=== PATIENT | male | born 1935 | race Caucasian/White ===

== ENCOUNTER 2019-02-20 15:45 | Emergency (ER) | payer BC, MEDICARE ==
[2019-02-20] MEDS ORDERED: Lidocaine 1% 10 ML MDV INJECT ONE (16:15)
--- NOTE | 2019-02-20 16:41 | EDM.PDOC ---
ED HPI GENERAL MEDICAL PROBLEM - General Chief Complaint: Head Injury Stated Complaint: [facility] Time Seen by Provider: 02/20/19 16:01 Source of Information: Reports: Patient, EMS, RN Notes Reviewed - History of Present Illness INITIAL COMMENTS - FREE TEXT/NARRATIVE: 83-year-old male is reported to have lost balance and fell a short time ago at the [facility]. Fell backwards, suffered a stellate type laceration posterior scalp. There is no reported LOC. Denies headache. Her back pain. No other pain or injury from the fall. There's been no nausea or vomiting. Right Posterior Head Pain Score (Numeric/FACES): 4 - Related Data Allergies Allergy/AdvReac Type Severity Reaction Status Date / Time No Known Allergies Allergy Verified 02/20/19 15:55 Home Meds: Home Meds Docusate Sodium [Colace] 100 mg PO ASDIRECTED PRN 02/20/19 [History] Losartan [Cozaar] 50 mg PO DAILY 02/20/19 [History] Metoprolol Tartrate 12.5 mg PO DAILY 02/20/19 [History] Metoprolol Tartrate 25 mg PO BEDTIME 02/20/19 [History] Montelukast [Singulair] 10 mg PO DAILY 02/20/19 [History] QUEtiapine [SEROquel] 25 mg PO ASDIRECTED PRN 02/20/19 [History] Past Medical History Cardiovascular History: Reports: Hypertension Respiratory History: Reports: COPD Neurological History: Reports: Alzheimers Disease Social & Family History - Tobacco Use Smoking Status *Q: Former Smoker Used Tobacco, but Quit: Yes Month/Year Tobacco Last Used: 20 - Caffeine Use Caffeine Use: Reports: Coffee, Tea - Recreational Drug Use Recreational Drug Use: No ED ROS GENERAL - Review of Systems Review Of Systems: See Below Constitutional: Reports: No Symptoms HEENT: Denies: Ear Discharge Respiratory: Denies: Shortness of Breath Cardiovascular: Denies: Chest Pain GI/Abdominal: Denies: Abdominal Pain, Nausea, Vomiting Musculoskeletal: Denies: Neck Pain, Shoulder Pain, Arm Pain, Back Pain, Leg Pain Neurological: Denies: Headache, Weakness (No focal weakness) ED EXAM, HEAD INJURY - Physical Exam Exam: See Below General Appearance: Alert, No Apparent Distress Head: Other (3 cm stellate laceration posterior occipital scalp, edges are jagged, very mild localized swelling, mild bleeding) Eyes: Bilateral Eye: PERRL Ears: Normal External Exam Nose: Normal Inspection Neck: Non-Tender Respiratory: No Respiratory Distress, Lungs Clear, Normal Breath Sounds Cardiovascular: Regular Rate, Rhythm Back Exam: Normal Inspection. No: Vertebral Tenderness Extremities: Normal Inspection, Normal Range of Motion, Other (Good range of motion upper and lower extremities, shoulders, upper extremities hips lower extremities nontender) Neurologic: No Motor/Sensory Deficits Skin: Warm/Dry ED LACERATION/WOUND & NEVILLE PROC - Laceration/Wound Repair Occipital Head Lac/wound length in cm: 3 Appearance: Stellate, Irregular Distal NVT: Neuro & Vascular Intact Local Anesthesia - Lidocaine (Xylocaine): 1% Plain Skin Prep: Saline Suture Size: 3-0 # of Sutures: 5 Suture Type: Nylon Course - Vital Signs Last Recorded V/S: Last Vital Signs Temp 99.1 F 02/20/19 15:49 Pulse 74 02/20/19 15:49 Resp 20 02/20/19 15:49 BP 139/78 02/20/19 15:49 Pulse Ox 98 02/20/19 15:49 - Orders/Labs/Meds Meds: Medications Discontinued Medications Generic Name Dose Route Start Last Admin Trade Name Opal PRN Reason Stop Dose Admin Lidocaine HCl 10 ml 02/20/19 16:15 02/20/19 16:21 Xylocaine 1% INJECT 02/20/19 16:16 10 ml ONETIME ONE Administration Departure - Departure Time of Disposition: 16:39 Disposition: Home, Self-Care 01 Condition: Fair Clinical Impression: Fall, Occipital scalp laceration - Discharge Information Referrals: Jori Ivy MD [Primary Care Provider] - Forms: ED Department Discharge Additional Instructions: Plan to keep pressure dressing on until Monday, then small amount of antibiotic ointment over the laceration area twice daily for the next 5 days. Stitches out in about 12 days. Follow-up clinic as needed, return to ED as needed. Sepsis Event Note - Evaluation Sepsis Screening Result: No Definite Risk - Focused Exam Vital Signs: Vital Signs Temp Pulse Resp BP Pulse Ox 02/20/19 15:49 99.1 F 74 20 139/78 98 Date Exam was Performed: 02/20/19 Time Exam was Performed: 16:41
== END 2019-02-20 17:04 | disposition home or self-care (01) ==
LOC: JD.ED 15:45
DX: S01.01XA Laceration without foreign body of scalp, initial encounter (principal); I10 Essential (primary) hypertension; J44.9 Chronic obstructive pulmonary disease, unspecified; G30.9 Alzheimer's disease, unspecified; F02.80 Dementia in other diseases classified elsewhere, unspecified severity, without behavioral disturbance, psychotic disturbance, mood disturbance, and anxiety; Z87.891 Personal history of nicotine dependence; Z79.899 Other long term (current) drug therapy; W19.XXXA Unspecified fall, initial encounter
CPT/HCPCS: 12002; 99283; J2001

== ENCOUNTER 2020-04-11 01:07 | Emergency (ER) | payer MEDICAID, MEDICARE ==
--- NOTE | 2020-04-11 01:21 | EDM.PDOC ---
ED HPI GENERAL MEDICAL PROBLEM - General Chief Complaint: Head Injury Stated Complaint: lac to head Time Seen by Provider: 04/11/20 01:21 - History of Present Illness INITIAL COMMENTS - FREE TEXT/NARRATIVE: 84-year-old male brought into the emergency room following a head injury. Patient resides in a long-term facility where he had an unwitnessed fall. Is unclear if he had any loss of consciousness. Patient has advanced Alzheimer's. However, the patient can answer questions. He denies pain anywhere. Patient has no other complaints reported or verbalized at this time. Head Pain Score (Numeric/FACES): 10 - Related Data Allergies Allergy/AdvReac Type Severity Reaction Status Date / Time No Known Allergies Allergy Verified 04/11/20 01:27 Home Meds: Home Meds Metoprolol Tartrate 25 mg PO BID 02/20/19 [History] Montelukast [Singulair] 10 mg PO DAILY 02/20/19 [History] Acetaminophen [Tylenol] 650 mg PO Q4H PRN 04/11/20 [History] Cholecalciferol (Vitamin D3) [Vitamin D3] 25 mcg PO DAILY 04/11/20 [History] Ipratropium/Albuterol Sulfate [Iprat-Albut 0.5-3(2.5) mg/3 ml] 1 ampule INH BID 04/11/20 [History] Latanoprost/Pf [Latanoprost 0.005% Eye Drop] 1 drop EYEBOTH BEDTIME 04/11/20 [History] Ondansetron [Zofran ODT] 4 mg PO Q6H PRN 04/11/20 [History] Past Medical History Cardiovascular History: Reports: Hypertension Respiratory History: Reports: COPD Neurological History: Reports: Alzheimers Disease Social & Family History - Caffeine Use Caffeine Use: Reports: Coffee, Tea ED ROS GENERAL - Review of Systems Review Of Systems: See Below Constitutional: Reports: No Symptoms HEENT: Reports: No Symptoms Respiratory: Reports: No Symptoms. Denies: Shortness of Breath Cardiovascular: Reports: No Symptoms. Denies: Chest Pain GI/Abdominal: Reports: No Symptoms. Denies: Abdominal Pain, Nausea, Vomiting Musculoskeletal: Denies: Neck Pain, Back Pain, Leg Pain Skin: Reports: No Symptoms Neurological: Denies: Headache, Trouble Speaking, Weakness Psychiatric: Reports: Confusion. Denies: Agitation, Anxiety Hematologic/Lymphatic: Reports: No Symptoms Immunologic: Reports: No Symptoms ED EXAM, HEAD INJURY - Physical Exam Exam: See Below Exam Limited By: No Limitations General Appearance: Alert, No Apparent Distress, Other (Patient had a careful exam looking for painful areas the patient denied any pain with pretty extensive palpation) Eyes: Bilateral Eye: EOMI, Normal Inspection, PERRL Ears: Normal External Exam, Normal Canal, Hearing Grossly Normal, Normal TMs, Other (Some cerumen in the external canals not obstructing) Throat/Mouth: Normal Inspection, Normal Lips, Normal Gums, Normal Oropharynx, No rmal Voice, No Airway Compromise, Other (Missing multiple teeth and has some teeth in need of repair no acute changes noted at this time however). No: Normal Teeth Neck: Non-Tender. No: Painful Range of Motion, Spinous Processes Tender, Stiff Neck Respiratory: No Respiratory Distress, Lungs Clear, Normal Breath Sounds, Chest Non-Tender Cardiovascular: Regular Rate, Rhythm, No Edema, No Murmur GI/Abdominal Exam: Normal Bowel Sounds, Soft, Non-Tender Back Exam: Normal Inspection, Paraspinal Tenderness. No: CVA Tenderness (L), Vertebral Tenderness Extremities: Normal Inspection, No Pedal Edema ED LACERATION/WOUND & NEVILLE PROC - Laceration/Wound Repair Right Posterior Head Lac/wound length in cm: 2 Appearance: Subcutaneous, Other (Curvilinear) Anesthetic Type: Local Local Anesthesia - Lidocaine (Xylocaine): 1% Plain Local Anesthetic Volume: 3cc Skin Prep: Saline Exploration/Debridement/Repair: Wound Explored, In a Bloodless Field, Explored to Base Closed with: [place] # of Sutures: 4 Tetanus Status Addressed: Yes (This is updated) Complications: No Course - Vital Signs Last Recorded V/S: Last Vital Signs Temp 36.2 C 04/11/20 01:19 Pulse 80 04/11/20 01:19 Resp 16 04/11/20 01:19 BP 132/81 04/11/20 01:19 Pulse Ox 98 04/11/20 01:19 - Orders/Labs/Meds Orders: Active Orders 24 hr Category Date Time Status Head wo Cont [CT] Stat Exams 04/11/20 01:29 Taken Meds: Medications Discontinued Medications Generic Name Dose Route Start Last Admin Trade Name Freq PRN Reason Stop Dose Admin Lidocaine HCl 10 ml 04/11/20 01:31 04/11/20 02:21 Xylocaine 1% INJECT 04/11/20 01:32 10 ml ONETIME ONE Administration - Re-Assessments/Exams Free Text/Narrative Re-Assessment/Exam: 04/11/20 02:39 With the uncertainty of the situation and head CT was obtained which showed some age-related changes generalized atrophy but no acute intracranial abnormality. Patient tolerated primary repair of the laceration on posterior scalp without difficulty. His tetanus was unknown so this was updated. Departure - Departure Time of Disposition: 02:41 Disposition: DC/Tfer to [facility] Clinical Impression: Head injury, Scalp laceration - Discharge Information Referrals: Andrei Hussein MD [Primary Care Provider] - Forms: ED Department Discharge Additional Instructions: Return to the emergency room with any questions problems or worsening symptoms. Follow-up with your regular healthcare provider in 10 days for staple removal. Keep the area absolutely clean and dry for the next 48 hours. After 48 hours you can let water gently roll over the area, no scrubbing, then gently dab dry. Sepsis Event Note (ED) - Focused Exam Vital Signs: Vital Signs Temp Pulse Resp BP Pulse Ox 04/11/20 01:19 36.2 C 80 16 132/81 98 - My Orders Last 24 Hours: My Active Orders 04/11/20 01:29 Head wo Cont [CT] Stat - Assessment/Plan Last 24 Hours: My Active Orders 04/11/20 01:29 Head wo Cont [CT] Stat
[2020-04-11] MEDS ORDERED: Lidocaine 1% 10 ML MDV INJECT ONE (01:31)
[2020-04-11] MEDS ORDERED: Diphtheria,Pertussis(Acell),Tetanus Vaccine 0.5 ML Syringe IM ONE (02:39)
--- NOTE | 2020-04-11 10:39 | CT ---
Head CT Technique: Multiple axial sections through the brain were obtained. Intravenous contrast was not utilized. Reconstructed coronal and sagittal images were obtained. Comparison: No prior intracranial imaging is available. Findings: Ventricles along with basal cisterns and sulci over the convexities are moderately prominent. Mild areas of diminished density are noted within the periventricular white matter compatible with mild small vessel ischemic demyelination change. Atherosclerotic calcification is seen within the carotid siphon and within the vertebral vessels. No acute hemorrhage is seen. No mass-effect is seen. Bone window settings were reviewed which show no acute calvarial abnormality. Slight mucosal thickening is noted within the ethmoid sinuses. Mastoid sinuses show nothing acute. Impression: 1. Senescent change as noted above. 2. Chronic appearing mucosal thickening within the ethmoid sinuses. 3. No acute intracranial abnormality is appreciated. Diagnostic code #2 I agree with preliminary report from [facility], finalized on 04/11/20, 3:35 AM [employer]
== END 2020-04-11 03:05 ==
LOC: JD.ED 01:07
DX: S01.01XA Laceration without foreign body of scalp, initial encounter (principal); S09.90XA Unspecified injury of head, initial encounter; I10 Essential (primary) hypertension; J44.9 Chronic obstructive pulmonary disease, unspecified; G30.9 Alzheimer's disease, unspecified; F02.80 Dementia in other diseases classified elsewhere, unspecified severity, without behavioral disturbance, psychotic disturbance, mood disturbance, and anxiety; Z23 Encounter for immunization; H61.23 Impacted cerumen, bilateral; W19.XXXA Unspecified fall, initial encounter
CPT/HCPCS: 12001; 70450; 70450-26; 90471; 90715; 99283; 99284-25

== ENCOUNTER 2020-06-28 22:06 | Emergency (ER) | payer MEDICAID, MEDICARE ==
[2020-06-28] MEDS ORDERED: Ondansetron 4 MG/2 ML SDV IVPUSH ONE (22:34)
--- NOTE | 2020-06-29 00:43 | EDM.PDOC ---
ED HPI GENERAL MEDICAL PROBLEM - General Chief Complaint: Gastrointestinal Problem Stated Complaint: [facility] Time Seen by Provider: 06/28/20 22:21 Source of Information: Reports: EMS, Long Term Records History Limitations: Reports: Altered Mental Status, Other (Dementia) - History of Present Illness INITIAL COMMENTS - FREE TEXT/NARRATIVE: Patient was referred to ED from [facility] He apparently was found in bed by staff, with evidence that he had fallen on the floor before getting back into bed He had occurrence of epistaxis, which resolved Subsequently has had small amounts of vomitus with bloody material Patient has dementia, and is unable to provide additional history Staff at facility report him to be at baseline mental status, minimally verbal - Related Data Allergies Allergy/AdvReac Type Severity Reaction Status Date / Time No Known Allergies Allergy Verified 06/28/20 22:15 Home Meds: Home Meds Montelukast [Singulair] 10 mg PO DAILY 02/20/19 [History] Acetaminophen [Tylenol] 650 mg PO Q4H PRN 04/11/20 [History] Cholecalciferol (Vitamin D3) [Vitamin D3] 25 mcg PO DAILY 04/11/20 [History] Ipratropium/Albuterol Sulfate [Iprat-Albut 0.5-3(2.5) mg/3 ml] 1 ampule INH BID 04/11/20 [History] Latanoprost/Pf [Latanoprost 0.005% Eye Drop] 1 drop EYEBOTH BEDTIME 04/11/20 [History] Ondansetron [Zofran ODT] 4 mg PO Q6H PRN 04/11/20 [History] Docusate Sodium [Colace] 100 mg PO DAILY PRN 06/28/20 [History] Sennosides [Senna] 8.6 mg PO DAILY PRN 06/28/20 [History] Past Medical History HEENT History: Reports: Other (See Below) Other HEENT History: dysphagia Cardiovascular History: Reports: Hypertension Respiratory History: Reports: Asthma, COPD, Pneumonia, Recurrent Gastrointestinal History: Reports: Chronic Constipation Genitourinary History: Reports: Renal Calculus Musculoskeletal History: Reports: Arthritis Neurological History: Reports: Alzheimers Disease, Speech Problems Psychiatric History: Reports: Alzheimers Disease Endocrine/Metabolic History: Reports: Other (See Below) Other Endocrine/Metabolic History: impaired fasting glucose Social & Family History - Family History Family Medical History: No Pertinent Family History - Tobacco Use Tobacco Use Status *Q: Unknown Ever Used Tobacco - Caffeine Use Caffeine Use: Reports: None ED ROS GENERAL - Review of Systems Review Of Systems: Unable To Obtain Reason Not Obtained: Limited by dementia ED EXAM, GENERAL - Physical Exam Exam: See Below Free Text/Narrative:: Constitutional - awake; alert; no acute distress; Head - no facial swelling or weakness; adhesive tapes with mild dried blood present lateral to right eye, no visible wound gap; mild periocular ecchymosis right eye Eyes - extra ocular motion intact; conjunctiva normal; pupils equal and reactive to light ENT - no nasal deformity; no epistaxis; no nasal septal hematoma; dark bloody vomitus present on blanket with mucoid saliva/oral secretions Neck - no swelling Respiratory - normal respiratory effort; no crackles or wheezing; no stridor Cardiovascular - regular rhythm; normal rate; S1; S2; grade 1/6 systolic murmur GI/Abdomen - normal bowel sounds; soft; no tenderness; no rebound; no guarding; no mass Musculoskeletal - no gross swelling or deformity; functional passive range of motion all extremities Skin - warm; dry Neurologic - speech limited, minimal; no gross weakness Psychiatric - flat mood and affect; attention fair; memory and insight deferred Course - Vital Signs Text/Narrative:: . Considered etiologies included: Fall, contusion, facial laceration, intracranial injury, intracranial hemorrhage, epistaxis, hematemesis, GI bleeding Patient was evaluated as described Treatment with ondansetron was provided for vomiting Investigations were initiated No visible laceration repair was indicated 2345 - CT results and consideration for transfer were discussed with patient's emergency contact, Amie Lora (stepdaughter) She indicated that surgical intervention would be desired if medically indicated, voiced preference for [facility] She expressed frustration that patient has had frequent falls since admission to his current care facility 01/2020 0020 - call initiated to [facility] for transfer [phone] - case discussed with Dr. Barone (neurosurgery at [facility]) who reviewed CT images, agreed to provide neurosurgery consultation [phone] - case discussed with Dr. Macias (hospitalist at [facility]) who accepted patient for transfer COVID-19 testing was performed at request of transfer agent Arrangements were made for transport by ambulance Patient's neurologic and hemodynamic condition were stable during ED course Last Recorded V/S: Last Vital Signs Temp 36.1 C 06/28/20 22:11 Pulse 87 06/28/20 22:11 Resp 17 06/28/20 22:11 BP 160/92 H 06/28/20 22:11 Pulse Ox 95 06/28/20 22:11 - Orders/Labs/Meds Orders: Active Orders 24 hr Category Date Time Status Head wo Cont [CT] Stat Exams 06/28/20 22:33 Taken Lactated Ringers @ 125 MLS/HR(1000ml Bag) Med 06/29/20 02:15 Ordered Lactated Ringers [Ringers, Lactated] 1,000 ml IV ASDIRECTED Medication Orders Lactated Ringer's (Ringers, Lactated) 1,000 mls @ 125 mls/hr IV ASDIRECTED SABI Last Admin: 06/29/20 02:15 Dose: 125 mls/hr Documented by: POOJA Labs: Laboratory Tests 06/28/20 06/28/20 06/28/20 Range/Units 22:40 22:40 22:40 WBC 11.29 H (4.23-9.07) K/mm3 RBC 4.55 L (4.63-6.08) M/mm3 Hgb 14.1 (13.7-17.5) gm/dl Hct 41.2 (40.1-51.0) % MCV 90.5 (79.0-92.2) fl MCH 31.0 (25.7-32.2) pg MCHC 34.2 (32.2-35.5) g/dl RDW Std Deviation 42.8 (35.1-43.9) fL Plt Count 136 L (163-337) K/mm3 MPV 10.3 (9.4-12.3) fl Neut % (Auto) 90.2 H (34.0-67.9) % Lymph % (Auto) 4.4 L (21.8-53.1) % Craig % (Auto) 4.3 L (5.3-12.2) % Eos % (Auto) 0.7 L (0.8-7.0) Baso % (Auto) 0.2 (0.1-1.2) % Neut # (Auto) 10.18 H (1.78-5.38) K/mm3 Lymph # (Auto) 0.50 L (1.32-3.57) K/mm3 Craig # (Auto) 0.49 (0.30-0.82) K/mm3 Eos # (Auto) 0.08 (0.04-0.54) K/mm3 Baso # (Auto) 0.02 (0.01-0.08) K/mm3 Manual Slide Review Abnormal smear PT 13.0 H (9.7-12.0) SECONDS INR 1.22 APTT 25.9 (21.7-31.4) SECONDS Sodium 140 (136-145) mEq/L Potassium 4.2 (3.5-5.1) mEq/L Chloride 103 (98-107) mEq/L Carbon Dioxide 26 (21-32) mEq/L Anion Gap 15.2 H (5-15) BUN 24 H (7-18) mg/dL Creatinine 1.1 (0.7-1.3) mg/dL Est Cr Clr Drug Dosing 37.48 mL/min Estimated GFR (MDRD) > 60 (>60) mL/min BUN/Creatinine Ratio 21.8 H (14-18) Glucose 213 H (83-115) mg/dL Calcium 8.7 (8.5-10.1) mg/dL Total Bilirubin 0.8 (0.2-1.0) mg/dL AST 21 (15-37) U/L ALT 31 (16-63) U/L Alkaline Phosphatase 90 (46-116) U/L Total Protein 6.7 (6.4-8.2) g/dl Albumin 3.7 (3.4-5.0) g/dl Globulin 3.0 gm/dL Albumin/Globulin Ratio 1.2 (1-2) SARS-CoV-2 RNA (MARLINE) (NEGATIVE) 06/29/20 Range/Units 01:27 WBC (4.23-9.07) K/mm3 RBC (4.63-6.08) M/mm3 Hgb (13.7-17.5) gm/dl Hct (40.1-51.0) % MCV (79.0-92.2) fl MCH (25.7-32.2) pg MCHC (32.2-35.5) g/dl RDW Std Deviation (35.1-43.9) fL Plt Count (163-337) K/mm3 MPV (9.4-12.3) fl Neut % (Auto) (34.0-67.9) % Lymph % (Auto) (21.8-53.1) % Craig % (Auto) (5.3-12.2) % Eos % (Auto) (0.8-7.0) Baso % (Auto) (0.1-1.2) % Neut # (Auto) (1.78-5.38) K/mm3 Lymph # (Auto) (1.32-3.57) K/mm3 Craig # (Auto) (0.30-0.82) K/mm3 Eos # (Auto) (0.04-0.54) K/mm3 Baso # (Auto) (0.01-0.08) K/mm3 Manual Slide Review PT (9.7-12.0) SECONDS INR APTT (21.7-31.4) SECONDS Sodium (136-145) mEq/L Potassium (3.5-5.1) mEq/L Chloride (98-107) mEq/L Carbon Dioxide (21-32) mEq/L Anion Gap (5-15) BUN (7-18) mg/dL Creatinine (0.7-1.3) mg/dL Est Cr Clr Drug Dosing mL/min Estimated GFR (MDRD) (>60) mL/min BUN/Creatinine Ratio (14-18) Glucose (83-115) mg/dL Calcium (8.5-10.1) mg/dL Total Bilirubin (0.2-1.0) mg/dL AST (15-37) U/L ALT (16-63) U/L Alkaline Phosphatase (46-116) U/L Total Protein (6.4-8.2) g/dl Albumin (3.4-5.0) g/dl Globulin gm/dL Albumin/Globulin Ratio (1-2) SARS-CoV-2 RNA (MARLINE) Negative (NEGATIVE) Meds: Medications Generic Name Dose Route Start Last Admin Trade Name Freq PRN Reason Stop Dose Admin Lactated Ringer's 1,000 mls @ 125 mls/hr 06/29/20 02:15 06/29/20 02:15 Ringers, Lactated IV 125 mls/hr ASDIRECTED SABI Administration Discontinued Medications Generic Name Dose Route Start Last Admin Trade Name Charbelq PRN Reason Stop Dose Admin Ondansetron HCl 4 mg 06/28/20 22:34 06/28/20 22:43 Ondansetron 4 Mg/2 Ml Sdv IVPUSH 06/28/20 22:35 4 mg ONETIME ONE Administration - Radiology Interpretation Free Text/Narrative:: CT head, noncontrast, preliminary radiology report: 1. Tiny 8 mm sub append mole (sic) hemorrhage involving the right lateral ventricle without significant mass-effect 2. No acute fracture or dislocation Departure - Departure Time of Disposition: 02:30 Disposition: DC/Tfer to [facility] Clinical Impression: Acute intracranial hemorrhage, Epistaxis due to trauma Fall with significant injury Qualifiers: Encounter type: initial encounter Qualified Code(s): W19.XXXA - Unspecified fall, initial encounter Laceration of face Qualifiers: Encounter type: initial encounter Qualified Code(s): S01.81XA - Laceration without foreign body of other part of head, initial encounter - Discharge Information Forms: [facility] Sepsis Event Note (ED) - Evaluation Sepsis Screening Result: No Definite Risk - Focused Exam Vital Signs: Vital Signs Temp Pulse Resp BP Pulse Ox 06/28/20 22:11 36.1 C 87 17 160/92 H 95 - My Orders Last 24 Hours: My Active Orders 06/28/20 22:33 Head wo Cont [CT] Stat 06/29/20 02:15 Lactated Ringers @ 125 MLS/HR(1000ml Bag) Lactated Ringers [Ringers, Lactated] 1,000 ml IV ASDIRECTED - Assessment/Plan Last 24 Hours: My Active Orders 06/28/20 22:33 Head wo Cont [CT] Stat 06/29/20 02:15 Lactated Ringers @ 125 MLS/HR(1000ml Bag) Lactated Ringers [Ringers, Lactated] 1,000 ml IV ASDIRECTED
[2020-06-29] MEDS ORDERED: Lactated Ringers 1,000 ML IV SCH (02:15)
--- NOTE | 2020-06-29 09:10 | CT ---
Head CT Technique: Multiple axial sections through the brain were obtained. Intravenous contrast was not utilized. Reconstructed coronal and sagittal images were obtained. Comparison: Prior head CT study of 04/11/20. Findings: Small area of hemorrhage is identified between the thalamus and base of the caudate nucleus on the right side. This measures about 8 mm. No other areas of intracranial hemorrhage are seen. Ventricles along with basal cisterns and sulci over the convexities are moderately prominent. Atherosclerotic calcification is seen within the vertebral vessel and within the carotid siphon. Minimal diminished density is noted within the periventricular white matter compatible with small vessel ischemic demyelination change. Bone window settings were reviewed which show mild mucosal thickening within portions of the ethmoid and sphenoid sinus. Mastoid sinuses show nothing acute. No acute calvarial abnormality is appreciated. Impression: 1. Small hemorrhage measuring approximately 8 mm located between the anterior thalamus and base of the caudate nucleus. 2. Senescent change as noted above. Mucosal thickening within the paranasal sinuses most likely chronic. 3. No other acute abnormality is otherwise seen. Diagnostic code #5 I agree with preliminary report from [facility], finalized on 06/29/20, 12:19 AM CDT, code 1
== END 2020-06-29 02:30 ==
LOC: JD.ED 22:06
DX: S06.309A Unspecified focal traumatic brain injury with loss of consciousness of unspecified duration, initial encounter (principal); S01.81XA Laceration without foreign body of other part of head, initial encounter; R04.0 Epistaxis; I10 Essential (primary) hypertension; Z20.822 Contact with and (suspected) exposure to COVID-19; W18.39XA Other fall on same level, initial encounter
CPT/HCPCS: 36415; 70450; 80053; 85025; 85610; 85730; 87635; 96374; 99285; J2405; J7120; U0002

== ENCOUNTER 2020-09-02 19:17 | Emergency (ER) | payer MEDICAID, MEDICARE ==
--- NOTE | 2020-09-02 19:26 | EDM.PDOC ---
ED HPI GENERAL MEDICAL PROBLEM - General Chief Complaint: Head Injury Stated Complaint: VINNY AMB Time Seen by Provider: 09/02/20 19:18 Source of Information: Reports: Provider (at [facility]) History Limitations: Reports: Physical Impairment (Patient has advanced dementia) - History of Present Illness INITIAL COMMENTS - FREE TEXT/NARRATIVE: I received a telephone call from Olga at the [facility] at 18:31, being informed that the patient was being sent to us by EMS in order to undergo a CT of the head without contrast. I was told that the patient suffered an unwitnessed fall at the [facility] around 16:00 this afternoon, at which time the patient struck his head and suffered a laceration to his right scalp. Olga had sutured the laceration, however, the patient's daughter reported that the patient has a prior history of an intracranial bleed, therefore requested that he be sent for a CT of the head. The patient is not on an anticoagulant. Here in the ED, the patient's initial BP is found to be elevated at 160/93, otherwise, he is hemodynamically stable, afebrile, saturating 95% on room air. He appears to be comfortable, in no acute distress. Due to advanced dementia, the patient is unable to answer any questions. PMHx/PSHx/SocHx per prior medical records/paperwork from the [facility]. The patient's PCP is Dr. Jori Ivy. Treatments DIRECTOR LAW ENFORCEMENT: Reports: Other (see below) Other Treatments DIRECTOR LAW ENFORCEMENT: Sutures - Related Data Allergies Allergy/AdvReac Type Severity Reaction Status Date / Time No Known Allergies Allergy Verified 09/02/20 19:22 Home Meds: Home Meds Montelukast [Singulair] 10 mg PO DAILY 02/20/19 [History] Acetaminophen [Tylenol] 650 mg PO Q4H PRN 04/11/20 [History] Cholecalciferol (Vitamin D3) [Vitamin D3] 25 mcg PO DAILY 04/11/20 [History] Ipratropium/Albuterol Sulfate [Iprat-Albut 0.5-3(2.5) mg/3 ml] 1 ampule INH BID 04/11/20 [History] Latanoprost/Pf [Latanoprost 0.005% Eye Drop] 1 drop EYEBOTH BEDTIME 04/11/20 [History] Ondansetron [Zofran ODT] 4 mg PO Q6H PRN 04/11/20 [History] Docusate Sodium [Colace] 100 mg PO DAILY PRN 06/28/20 [History] Sennosides [Senna] 8.6 mg PO DAILY PRN 06/28/20 [History] Past Medical History HEENT History: Reports: Other (See Below) Other HEENT History: dysphagia Cardiovascular History: Reports: Hypertension Respiratory History: Reports: Asthma, COPD, Pneumonia, Recurrent Gastrointestinal History: Reports: Chronic Constipation Genitourinary History: Reports: Renal Calculus Musculoskeletal History: Reports: Arthritis Neurological History: Reports: Alzheimers Disease, Speech Problems Psychiatric History: Reports: Alzheimers Disease Endocrine/Metabolic History: Reports: Other (See Below) Other Endocrine/Metabolic History: impaired fasting glucose Social & Family History - Family History Family Medical History: No Pertinent Family History - Caffeine Use Caffeine Use: Reports: None ED ROS GENERAL - Review of Systems Review Of Systems: Unable To Obtain Reason Not Obtained: Patient has advanced dementia ED EXAM, HEAD INJURY - Physical Exam Exam: See Below Exam Limited By: No Limitations General Appearance: Alert, WD/WN, No Apparent Distress Head: Normocephalic, Other (Right scalp laceration sutured, with gauze included) Eyes: Bilateral Eye: EOMI, Normal Inspection Ears: Normal External Exam, Hearing Grossly Normal Nose: Normal Inspection Throat/Mouth: Normal Inspection, Normal Lips, Normal Voice, No Airway Compromise Neck: Normal Inspection Respiratory: No Respiratory Distress, Lungs Clear, Normal Breath Sounds, No Accessory Muscle Use Cardiovascular: Normal Peripheral Pulses, Regular Rate, Rhythm, No Edema, No Gallop, No JVD, No Murmur, No Rub GI/Abdominal Exam: Normal Bowel Sounds, Soft, Non-Tender, No Organomegaly, No Distention, No Abnormal Bruit, No Mass Back Exam: Full Range of Motion, Normal Inspection, NT Extremities: Normal Inspection, Normal Range of Motion, No Pedal Edema, Normal Capillary Refill 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 nml As Tested, No Motor/Sensory Deficits, Alert, Other (Confused) Skin: Normal Color, Warm/Dry Course - Vital Signs Last Recorded V/S: Last Vital Signs Temp 36.6 C 09/02/20 19:18 Pulse 92 09/02/20 19:18 Resp 20 09/02/20 19:18 BP 160/93 H 09/02/20 19:18 Pulse Ox 95 09/02/20 19:18 - Re-Assessments/Exams Free Text/Narrative Re-Assessment/Exam: 09/02/20 19:23 As above, the patient was sent from the [facility] for a CT of his head after he suffered an unwitnessed fall at his senior living, sustaining a laceration to his right scalp, which was sutured at the [facility]. Here in the ED, the patient appears to be comfortable, but is unable to answer any questions. I have ordered a CT of the head without contrast. 09/02/20 20:00 CT of the head without contrast is read by Dr. Guerrero as: 1. Sinus findings which are fairly similar to prior exam and compatible with mild chronic sinusitis. 2. Senescent changes noted above. 3. No acute intracranial abnormality is appreciated on noncontrast head CT exam. Based on the above, I will discharge the patient back to the [facility]. Departure - Departure Time of Disposition: 20:01 Disposition: Home, Self-Care 01 Condition: Good Clinical Impression: Fall at senior living, Scalp laceration - Discharge Information *PRESCRIPTION DRUG MONITORING PROGRAM REVIEWED*: Not Applicable *COPY OF PRESCRIPTION DRUG MONITORING REPORT IN PATIENT FLORY: Not Applicable Forms: ED Department Discharge Additional Instructions: Mr. Wallace was sent to the ER from the [facility] after suffering an unwitnessed fall at the senior living, sustaining a laceration to his right scalp. The laceration was sutured at the [facility]. The patient was then sent to our ED to undergo a CT of his head. The CT of the head without contrast found no acute abnormalities. Mr. Wallace may resume his usual activities. Suture management and removal per the [facility]. If any other problems, please do not hesitate to return Mr. Wallace to the ER. Sepsis Event Note (ED) - Evaluation Sepsis Screening Result: No Definite Risk - Focused Exam Vital Signs: Vital Signs Temp Pulse Resp BP Pulse Ox 09/02/20 19:18 36.6 C 92 20 160/93 H 95
--- NOTE | 2020-09-02 19:56 | CT ---
Head CT Technique: Multiple axial sections through the brain were obtained. Intravenous contrast was not utilized. Reconstructed coronal and sagittal images were obtained. Comparison: Prior head CT study of 06/28/20. Findings: Ventricles along with basal cisterns and sulci over the convexities are moderately prominent. Minimal diminished density is noted within the periventricular white matter which is believed to represent slight small vessel ischemic demyelination change. Atrophy is seen within the cerebellum. Atherosclerotic calcification is seen within the vertebral vessels and carotid siphon. No acute intracranial hemorrhage is seen. No midline shift or mass-effect is seen. Bone window settings were reviewed. Visualized mastoid sinuses are clear. Mild mucosal thickening is seen within the visualized sphenoid sinus as well as ethmoid sinuses. No acute calvarial abnormality is appreciated. Impression: 1. Sinus findings which are fairly similar to prior exam and compatible with mild chronic sinusitis. 2. Senescent change as noted above. 3. No acute intracranial abnormality is appreciated on noncontrast head CT exam. Diagnostic code #2
== END 2020-09-02 20:58 | disposition home or self-care (01) ==
LOC: JD.ED 19:17
DX: S01.01XA Laceration without foreign body of scalp, initial encounter (principal); I10 Essential (primary) hypertension; J44.9 Chronic obstructive pulmonary disease, unspecified; G30.9 Alzheimer's disease, unspecified; F02.80 Dementia in other diseases classified elsewhere, unspecified severity, without behavioral disturbance, psychotic disturbance, mood disturbance, and anxiety; Z79.899 Other long term (current) drug therapy; W19.XXXA Unspecified fall, initial encounter; Y92.129 Unspecified place in nursing home as the place of occurrence of the external cause
CPT/HCPCS: 70450; 70450-26; 99283; 99283-25

== ENCOUNTER 2020-09-28 09:42 | Observation (INO) | payer MEDICAID, MEDICARE ==
[~2020-09-28 09:42] MED LIST: Albuterol 0.083% 2.5 MG/3 ML Neb Soln NEB PRN; Lactated Ringers 1,000 ML IV SCH; Lidocaine 1%/Sod Bicarbonate in NS 8.4% 1 ML Syringe IDERM PRN; Sodium Chloride 0.9% 10 ML Syringe FLUSH PRN
[2020-09-28] MEDS ORDERED: fentaNYL 100 MCG/2 ML SDV ONE (10:22)
[2020-09-28] MEDS ORDERED: Propofol 200 MG/20 ML SDV ONE (10:24)
[2020-09-28] MEDS ORDERED: Lidocaine 1% 6 ML ONE (10:28)
--- NOTE | 2020-09-28 10:46 | PCM.PREANE ---
Preanesthetic Assessment - Procedure Proposed Procedure: EGD with peg tube placement - Anesthesia/Transfusion/Family Hx Anesthesia History: Prior Anesthesia Without Reaction - Review of Systems General: No Symptoms Pulmonary: No Symptoms, Other (chronic sinusitis) Cardiovascular: No Symptoms Gastrointestinal: No Symptoms Neurological: Other (Hx of intracranial bleed, Alzheimer, dementia) Other: Reports: None - Physical Assessment NPO Status Date: 09/27/20 NPO Status Time: 23:50 Vital Signs: Last Vital Signs Temp 98.3 F 09/28/20 09:45 Pulse 82 09/28/20 09:45 Resp 20 09/28/20 09:45 BP 134/89 09/28/20 09:45 Pulse Ox 94 L 09/28/20 09:45 ASA Class: 3 Mental Status: Alert & Oriented x3 Airway Class: Mallampati = 2 Dentition: Reports: Missing Tooth/Teeth (multiple missing teeth, poor dentition) Thyro-Mental Finger Breadths: 3 Mouth Opening Finger Breadths: 3 ROM/Head Extension: Full Lungs: Clear to Auscultation, Normal Respiratory Effort Cardiovascular: Regular Rate, Regular Rhythm - Allergies Allergies/Adverse Reactions: Allergies Allergy/AdvReac Type Severity Reaction Status Date / Time No Known Allergies Allergy Verified 09/25/20 10:06 - Acknowledgements Anesthesia Type Planned: MAC Pt an Appropriate Candidate for the Planned Anesthesia: Yes Alternatives and Risks of Anesthesia Discussed w Pt/Guardian: Yes Pt/Guardian Understands and Agrees with Anesthesia Plan: Yes PreAnesthesia Questionnaire HEENT History: Reports: Other (See Below) Other HEENT History: dysphagia, nasal turbinate hypertrophy Cardiovascular History: Reports: High Cholesterol, Hypertension, Other (See Below) Other Cardiovascular History: vasculitis Respiratory History: Reports: Asthma, COPD, Pneumonia, Recurrent Gastrointestinal History: Reports: Chronic Constipation Genitourinary History: Reports: Renal Calculus COMPANY DOCTOR History: Reports: None Musculoskeletal History: Reports: Arthritis Neurological History: Reports: Alzheimers Disease, Speech Problems, Other (See Below) Other Neuro History: intracranial bleed, fall, head injury Psychiatric History: Reports: Alzheimers Disease, Dementia Endocrine/Metabolic History: Reports: Other (See Below) Other Endocrine/Metabolic History: impaired fasting glucose Hematologic History: Reports: None Immunologic History: Reports: None Oncologic (Cancer) History: Reports: None Dermatologic History: Reports: Other (See Below) Other Dermatologic History: scalp laceration - Past Surgical History Head Surgeries/Procedures: Reports: None HEENT Surgical History: Reports: Cataract Surgery Cardiovascular Surgical History: Reports: None Respiratory Surgical History: Reports: None GI Surgical History: Reports: None Female Surgical History: Reports: None Male Surgical History: Reports: None Endocrine Surgical History: Reports: None Neurological Surgical History: Reports: None Musculoskeletal Surgical History: Reports: None Oncologic Surgical History: Reports: None Dermatological Surgical History: Reports: None - SUBSTANCE USE Tobacco Use Status *Q: Former Tobacco User Recreational Drug Use History: No - HOME MEDS Home Medications: Home Meds Montelukast [Singulair] 10 mg PO DAILY 02/20/19 [History] Acetaminophen [Tylenol] 650 mg PO Q4H PRN 04/11/20 [History] Cholecalciferol (Vitamin D3) [Vitamin D3] 25 mcg PO DAILY 04/11/20 [History] Ipratropium/Albuterol Sulfate [Iprat-Albut 0.5-3(2.5) mg/3 ml] 1 ampule INH BID 04/11/20 [History] Latanoprost/Pf [Latanoprost 0.005% Eye Drop] 1 drop EYEBOTH BEDTIME 04/11/20 [History] Ondansetron [Zofran ODT] 4 mg PO Q6H PRN 04/11/20 [History] Docusate Sodium [Colace] 100 mg PO DAILY PRN 06/28/20 [History] Sennosides [Senna] 8.6 mg PO DAILY PRN 06/28/20 [History] Albuterol/Ipratropium [DuoNeb 3.0-0.5 MG/3 ML] 3 ml NEB BID 09/25/20 [History] - CURRENT (IN HOUSE) MEDS Current Meds: Current Medications Albuterol (Albuterol 0.083% 2.5 Mg/3 Ml Neb Soln) 2.5 mg NEB ONETIME PRN PRN Reason: asthma Stop: 09/28/20 18:00 Lactated Ringer's (Ringers, Lactated) 1,000 mls @ 125 mls/hr IV ASDIRECTED SABI Stop: 09/28/20 23:00 Lidocaine/Sodium Bicarbonate (Lidocaine 1%/Sod Bicarbonate In Ns 8.4% 1 Ml Syringe) 0.25 ml IDERM ONETIME PRN PRN Reason: Prior to IV Start Stop: 09/28/20 18:00 Sodium Chloride (Sodium Chloride 0.9% 10 Ml Syringe) 10 ml FLUSH ASDIRECTED PRN PRN Reason: Keep Vein Open Stop: 09/28/20 18:00 Discontinued Medications Fentanyl (Fentanyl 100 Mcg/2 Ml Sdv) Confirm Administered Dose 100 mcg .ROUTE .STK-MED ONE Stop: 09/28/20 10:23 Lidocaine HCl (Xylocaine-Mpf 1%) Confirm Administered Dose 6 mls @ as directed .ROUTE .STK-MED ONE Stop: 09/28/20 10:29 Propofol (Propofol 200 Mg/20 Ml Sdv) Confirm Administered Dose 200 mg .ROUTE .STK-MED ONE Stop: 09/28/20 10:25
[2020-09-28] MEDS ORDERED: ceFAZolin 1 GM Vial ONE (11:12)
[2020-09-28] MEDS ORDERED: Acetaminophen 325 MG Tab PO PRN (11:57)
[2020-09-28] MEDS ORDERED: Acetaminophen/HYDROcodone 325-5 MG Tab PO PRN (11:57)
[2020-09-28] MEDS ORDERED: Lactated Ringers 1,000 ML IV SCH (12:00)
--- NOTE | 2020-09-28 12:14 | PCM48HPAN ---
Post Anesthesia Note - EVALUATION WITHIN 48HRS OF ANESTHETIC Vital Signs in Normal Range: Yes Patient Participated in Evaluation: No (still drowsly, but easily arousable and responds) Respiratory Function Stable: Yes Airway Patent: Yes Cardiovascular Function Stable: Yes Hydration Status Stable: Yes Pain Control Satisfactory: Yes Nausea and Vomiting Control Satisfactory: Yes Mental Status Recovered: Yes (drowsy, mental status relative to preoperative baseline.) Vital Signs: Last Vital Signs 128/85 86 HR 20 RR 93% RA 97.9 - COMMENTS/OBSERVATIONS Free Text/Narrative:: Transferred for 23 hr observation to MS floor room 8, report and transfer of car e given to Tamika Oneal RN
--- NOTE | 2020-09-28 12:45 | PROC ---
DATE OF OPERATION: 09/28/2020 SURGEON: Josy Meyers MD PREOPERATIVE DIAGNOSIS: Severe protein-calorie malnutrition. POSTOPERATIVE DIAGNOSIS: Severe protein-calorie malnutrition. OPERATION PERFORMED: 1. Esophagogastroduodenoscopy 2. Endoscopic gastrostomy tube placement. ANESTHESIA: Monitored anesthesia care. COMPLICATIONS: None. FINDINGS: 1. Duodenitis. 2. No upper GI obstruction. INDICATION AND CONSENT: Mr. Wallace is an 85-year-old male with Alzheimer disease. The patient has developed progressive dysphagia with aspiration. Because of this, he is not able to eat much, and he has been losing weight. BMI at the time of my evaluation was 17.7. Because of his severe protein-calorie malnutrition, family and the patient sought to have a G-tube placed, and I discussed with the patient. We discussed risks, benefits, and alternatives. They agreed to proceed with the procedure, and informed consent was obtained. DESCRIPTIO OF PROCEDURE: The patient was taken to the procedure room and placed in the supine position. A time-out was performed. Preop antibiotics were given, and monitored anesthesia care was induced. We began with an EGD. Scope was placed into the mouth, taken all the way to the second portion of the duodenum. Second portion of the duodenum was normal. Duodenal bulb showed some inflammation localized in several areas. Biopsies with cold forceps were taken. The entirety of the stomach was normal. On retroflexion, there was no hiatal hernia. The esophagus also appeared to be normal. Then, we insufflated the stomach, transilluminated through the stomach, and performed one-to-one finger motion while directly looking in the stomach. Therefore, we identified the area in the left upper quadrant that was well positioned for PEG placement. This area was marked, prepped and draped in the usual sterile fashion, and then local anesthetic consisting of 1% lidocaine was injected in this area. While injecting, we placed a needle down to the stomach, and there was no aspiration of air before entering the stomach. Once this was done, then an incision was made. A needle for the catheter was placed while suctioning, and there was no aspiration of air until the needle tip was visible in the stomach. This reduced the risk of going through another organ before entering the stomach. Then, wire was passed, and it was grasped by a snare and removed, and a Ponsky Deluxe "Pull" PEG tube was placed in the usual sterile fashion. The PEG tube placed was a 20-Colombian gastrostomy tube with a silicon retention dome that is externally removable. Once this was done, inspected the stomach, and there was no bleeding internally. EGD portion was finished. The external bumper at 3 cm, leaving it with about 0.5 cm of play between the bumper and the skin. An ointment was placed at the incision level and dressing, and the procedure was concluded. The patient will be observed overnight for G-tube trial and be discharged to the facility tomorrow. HARRISON /[id number] DYLAN
[2020-09-29] MEDS ORDERED: Docusate Sodium 100 MG Cap PO PRN (06:36)
--- NOTE | 2020-09-29 06:44 | PCM.PN ---
- General Info Date of Service: 09/29/20 Subjective Update: Patient is doing well. no acute issues overnight. Tolerating tube feeds Functional Status: Reports: Pain Controlled - Review of Systems General: Reports: No Symptoms HEENT: Reports: No Symptoms Pulmonary: Reports: No Symptoms Cardiovascular: Reports: No Symptoms Gastrointestinal: Reports: No Symptoms Genitourinary: Reports: No Symptoms Musculoskeletal: Reports: No Symptoms Skin: Reports: No Symptoms Neurological: Reports: No Symptoms - Patient Data Vitals - Most Recent: Last Vital Signs Temp 99.3 F 09/29/20 00:12 Pulse 102 H 09/29/20 00:12 Resp 16 09/29/20 00:12 BP 112/67 09/29/20 00:12 Pulse Ox 93 L 09/29/20 00:12 Weight - Most Recent: 50.439 kg I&O - Last 24 Hours: Intake & Output 09/28/20 09/28/20 09/29/20 14:59 22:59 06:59 Intake Total 100 1220 Output Total 125 Balance -25 1220 Lab Results Last 24 Hours: Laboratory Results - last 24 hr 09/28/20 Range/Units 14:15 MRSA (PCR) Negative Med Orders - Current: Current Medications Acetaminophen (Acetaminophen 325 Mg Tab) 650 mg PO Q6H PRN PRN Reason: Pain (mild 1-3) Hydrocodone Bitart/Acetaminophen (Acetaminophen/Hydrocodone 325-5 Mg Tab) 1 tab PO Q4H PRN PRN Reason: Pain (moderate 4-6) Albuterol/Ipratropium (Albuterol/Ipratropium 3.0-0.5 Mg/3 Ml Neb Soln) 3 ml NEB BID SABI Docusate Sodium (Docusate Sodium 100 Mg Cap) 100 mg PO DAILY PRN PRN Reason: Constipation Lactated Ringer's (Ringers, Lactated) 1,000 mls @ 50 mls/hr IV ASDIRECTED SABI Last Admin: 09/28/20 14:13 Dose: 50 mls/hr Documented by: Montelukast Sodium (Montelukast 10 Mg Tab) 10 mg PO DAILY SABI Non-Formulary Medication (Latanoprost/Pf [Latanoprost 0.005% Eye Drop]) 1 drop EYEBOTH BEDTIME SABI Discontinued Medications Albuterol (Albuterol 0.083% 2.5 Mg/3 Ml Neb Soln) 2.5 mg NEB ONETIME PRN PRN Reason: asthma Stop: 09/28/20 18:00 Cefazolin Sodium (Cefazolin 1 Gm Vial) Confirm Administered Dose 2 gm .ROUTE .STK-MED ONE Stop: 09/28/20 11:13 Fentanyl (Fentanyl 100 Mcg/2 Ml Sdv) Confirm Administered Dose 100 mcg .ROUTE .STK-MED ONE Stop: 09/28/20 10:23 Lactated Ringer's (Ringers, Lactated) 1,000 mls @ 125 mls/hr IV ASDIRECTED SABI Stop: 09/28/20 23:00 Last Admin: 09/28/20 10:05 Dose: 125 mls/hr Documented by: Lidocaine HCl (Xylocaine-Mpf 1%) Confirm Administered Dose 6 mls @ as directed .ROUTE .STK-MED ONE Stop: 09/28/20 10:29 Lidocaine/Sodium Bicarbonate (Lidocaine 1%/Sod Bicarbonate In Ns 8.4% 1 Ml Syringe) 0.25 ml IDERM ONETIME PRN PRN Reason: Prior to IV Start Stop: 09/28/20 18:00 Propofol (Propofol 200 Mg/20 Ml Sdv) Confirm Administered Dose 200 mg .ROUTE .STK-MED ONE Stop: 09/28/20 10:25 Sodium Chloride (Sodium Chloride 0.9% 10 Ml Syringe) 10 ml FLUSH ASDIRECTED PRN PRN Reason: Keep Vein Open Stop: 09/28/20 18:00 - Exam General: Alert, Oriented, Cooperative Lungs: Normal Respiratory Effort Cardiovascular: Regular Rate, Regular Rhythm GI/Abdominal Exam: Soft, Non-Tender, No Distention, Other (Gastrostomy in placed, Bumper at 3 cm.) - Patient Data Lab Results Last 24 hrs: Laboratory Results - last 24 hr 09/28/20 Range/Units 14:15 MRSA (PCR) Negative Sepsis Event Note - Evaluation Sepsis Screening Result: No Definite Risk - Focused Exam Vital Signs: Vital Signs Temp Pulse Resp BP Pulse Ox 09/29/20 00:12 99.3 F 102 H 16 112/67 93 L 09/28/20 20:36 98.2 F 94 18 139/77 91 L - Problem List Review Problem List Initiated/Reviewed/Updated: No - My Orders Last 24 Hours: My Active Orders 09/28/20 11:57 Patient Status [ADT] Routine Ambulate [RC] BID Oxygen Therapy [RC] PRN RT Incentive Spirometry [RC] Q1HWA Up With Assistance [RC] DAILY Up ad Jodi [RC] Vital Signs [RC] ,,,04 Acetaminophen [TylenoL] 650 mg PO Q6H PRN Acetaminophen/HYDROcodone [[place] 325-5 MG] 1 tab PO Q4H PRN DVT/VTE Prophylaxis Reflex [OM.PC] Routine Resuscitation Status Routine 09/28/20 11:58 Intake and Output [RC] ,16 Up to Chair [RC] 06,,09/28/20 11:59 Gastrointestinal Tube Mgmt [RC] 04,,, Head of Bed Elevation [RC] 04,,,09/28/20 12:00 Lactated Ringers [Ringers, Lactated] 1,000 ml IV ASDIRECTED 09/28/20 12:04 Communication Order [RC] ROUTINE 09/28/20 15:28 Antiembolic Devices [RC] Consult to Pot Puller [CONS] Routine LENCHO Hose [Antiembolic Hose] [OM.PC] Routine 09/28/20 Dinner Tube Feeding Pediatric Diet [DIET] 09/29/20 06:36 Docusate Sodium [Colace] 100 mg PO DAILY PRN 09/29/20 06:37 RT Aerosol Therapy [RC] ASDIRECTED 09/29/20 Breakfast Tube Feeding Pediatric Diet [DIET] 09/29/20 09:00 Albuterol/Ipratropium [DuoNeb 3.0-0.5 MG/3 ML] 3 ml NEB BID Montelukast [Singulair] 10 mg PO DAILY 09/29/20 21:00 Latanoprost/Pf [Latanoprost 0.005% Eye Drop] 1 drop EYEBOTH BEDTIME - Assessment Assessment:: POD1 G-tube placement. Tolerating tube feeds - Plan Plan:: - Appreciate nutrition recs. Please follow them - No need to placed gauze under the G-tube bumper at this time, unless there is leakage. If there is leakage, placed just one piece of gauze - Plan is for the patient to return to his facility today after tolerating bolus feeds.
--- NOTE | 2020-09-29 06:52 | PCM.DCSUM1 ---
Discharge Summary - Hospital Course Free Text/Narrative:: patient has severe protein calorie malnutrition. He had a PEG tube placed. He tolerated tube feeds and was discharged back to his nursing facility in stable condition with the G-tube. Diagnosis: Stroke: No - Discharge Data Discharge Date: 09/29/20 Discharge Disposition: DC/Tfer to SNF 03 Condition: Good - Referral to Home Health Primary Care Physician: PCP None - Patient Summary/Data Consults: Consultations 09/28/20 15:28 Consult to [facility] [CONS] Routine - Patient Instructions Diet: Heart Healthy Diet (per dietary recommendations. ) Activity: As Tolerated Driving: Do Not Drive Showering/Bathing: May Shower Wound/Incision Care: Keep Operative Site/Wound Site Clean and Dry (Do not place gauze under the G-tube bumper unless leaking. If leaking or bleeding, placed one sheet of gauze. Never stack gauze under the bumper.) Notify Provider of: Fever, Increased Pain, Swelling and Redness, Drainage, Nausea and/or Vomiting - Discharge Plan *PRESCRIPTION DRUG MONITORING PROGRAM REVIEWED*: No *COPY OF PRESCRIPTION DRUG MONITORING REPORT IN PATIENT FLORY: No Home Medications: Home Meds Montelukast [Singulair] 10 mg PO DAILY 02/20/19 [History] Acetaminophen [Tylenol] 650 mg PO Q4H PRN 04/11/20 [History] Cholecalciferol (Vitamin D3) [Vitamin D3] 25 mcg PO DAILY 04/11/20 [History] Latanoprost/Pf [Latanoprost 0.005% Eye Drop] 1 drop EYEBOTH BEDTIME 04/11/20 [History] Ondansetron [Zofran ODT] 4 mg PO Q6H PRN 04/11/20 [History] Docusate Sodium [Colace] 100 mg PO DAILY PRN 06/28/20 [History] Sennosides [Senna] 8.6 mg PO DAILY PRN 06/28/20 [History] Albuterol/Ipratropium [DuoNeb 3.0-0.5 MG/3 ML] 3 ml NEB BID 09/25/20 [History] Oxygen Therapy Mode: Room Air Referrals: PCP,Unknown [Ordering Only Provider] - - Discharge Summary/Plan Comment DC Time >30 min.: No - General Info Date of Service: 09/29/20 Admission Dx/Problem (Free Text: G-tube Subjective Update: Patient is doing well. no acute issues overnight. Tolerating tube feeds Functional Status: Reports: Pain Controlled - Review of Systems General: Reports: No Symptoms HEENT: Reports: No Symptoms Pulmonary: Reports: No Symptoms Cardiovascular: Reports: No Symptoms Gastrointestinal: Reports: No Symptoms Genitourinary: Reports: No Symptoms Musculoskeletal: Reports: No Symptoms Skin: Reports: No Symptoms Neurological: Reports: No Symptoms - Patient Data Vitals - Most Recent: Last Vital Signs Temp 99.3 F 09/29/20 00:12 Pulse 102 H 09/29/20 00:12 Resp 16 09/29/20 00:12 BP 112/67 09/29/20 00:12 Pulse Ox 93 L 09/29/20 00:12 Weight - Most Recent: 50.439 kg I&O - Last 24 hours: Intake & Output 09/28/20 09/28/20 09/29/20 14:59 22:59 06:59 Intake Total 100 1220 Output Total 125 Balance -25 1220 Lab Results - Last 24 hrs: Laboratory Results - last 24 hr 09/28/20 Range/Units 14:15 MRSA (PCR) Negative Med Orders - Current: Current Medications Acetaminophen (Acetaminophen 325 Mg Tab) 650 mg PO Q6H PRN PRN Reason: Pain (mild 1-3) Hydrocodone Bitart/Acetaminophen (Acetaminophen/Hydrocodone 325-5 Mg Tab) 1 tab PO Q4H PRN PRN Reason: Pain (moderate 4-6) Albuterol/Ipratropium (Albuterol/Ipratropium 3.0-0.5 Mg/3 Ml Neb Soln) 3 ml NEB BID SABI Docusate Sodium (Docusate Sodium 100 Mg Cap) 100 mg PO DAILY PRN PRN Reason: Constipation Lactated Ringer's (Ringers, Lactated) 1,000 mls @ 50 mls/hr IV ASDIRECTED SABI Last Admin: 09/28/20 14:13 Dose: 50 mls/hr Documented by: Montelukast Sodium (Montelukast 10 Mg Tab) 10 mg PO DAILY SABI Non-Formulary Medication (Latanoprost/Pf [Latanoprost 0.005% Eye Drop]) 1 drop EYEBOTH BEDTIME SABI Discontinued Medications Albuterol (Albuterol 0.083% 2.5 Mg/3 Ml Neb Soln) 2.5 mg NEB ONETIME PRN PRN Reason: asthma Stop: 09/28/20 18:00 Cefazolin Sodium (Cefazolin 1 Gm Vial) Confirm Administered Dose 2 gm .ROUTE .STK-MED ONE Stop: 09/28/20 11:13 Fentanyl (Fentanyl 100 Mcg/2 Ml Sdv) Confirm Administered Dose 100 mcg .ROUTE .STK-MED ONE Stop: 09/28/20 10:23 Lactated Ringer's (Ringers, Lactated) 1,000 mls @ 125 mls/hr IV ASDIRECTED SABI Stop: 09/28/20 23:00 Last Admin: 09/28/20 10:05 Dose: 125 mls/hr Documented by: Lidocaine HCl (Xylocaine-Mpf 1%) Confirm Administered Dose 6 mls @ as directed .ROUTE .STK-MED ONE Stop: 09/28/20 10:29 Lidocaine/Sodium Bicarbonate (Lidocaine 1%/Sod Bicarbonate In Ns 8.4% 1 Ml Syringe) 0.25 ml IDERM ONETIME PRN PRN Reason: Prior to IV Start Stop: 09/28/20 18:00 Propofol (Propofol 200 Mg/20 Ml Sdv) Confirm Administered Dose 200 mg .ROUTE .STK-MED ONE Stop: 09/28/20 10:25 Sodium Chloride (Sodium Chloride 0.9% 10 Ml Syringe) 10 ml FLUSH ASDIRECTED PRN PRN Reason: Keep Vein Open Stop: 09/28/20 18:00 - Exam General: Reports: Alert, Oriented, Cooperative Lungs: Reports: Normal Respiratory Effort Cardiovascular: Reports: Regular Rate, Regular Rhythm GI/Abdominal Exam: Soft, Non-Tender, No Organomegaly, No Distention, Other (G- tube in place. Bumper at 3 cm)
[2020-09-29] MEDS ORDERED: Albuterol/Ipratropium 3.0-0.5 MG/3 ML Neb Soln NEB SCH (09:00)
[2020-09-29] MEDS ORDERED: Montelukast 10 MG Tab PO SCH (21:00)
[2020-09-29] MEDS ORDERED: Latanoprost 0.005% Ophth Soln 2.5 ML Bottle EYEBOTH SCH (21:00)
== END 2020-09-29 14:26 ==
LOC: JD.MS 09:42 → EDSTATUS 11:15
PROVIDERS: ADMIT Surgery; ATTEND Surgery
DX: Z43.1 Encounter for attention to gastrostomy (principal); E43 Unspecified severe protein-calorie malnutrition; K29.80 Duodenitis without bleeding; K31.89 Other diseases of stomach and duodenum; G30.9 Alzheimer's disease, unspecified; F02.80 Dementia in other diseases classified elsewhere, unspecified severity, without behavioral disturbance, psychotic disturbance, mood disturbance, and anxiety; J45.909 Unspecified asthma, uncomplicated; Z68.1 Body mass index [BMI] 19.9 or less, adult; Z87.891 Personal history of nicotine dependence; Z20.822 Contact with and (suspected) exposure to COVID-19
CPT/HCPCS: 43239; 43246; 87635; 87641; 94640; 94760; G0378; J0690; J2704; J3010; J7120; 00731; 99100; J7620-GY; U0002

== ENCOUNTER 2020-10-03 12:13 | Inpatient (IN) | payer MEDICARE, MEDICAID ==
[2020-10-03] MEDS: Sodium Chloride 0.9% 10 ML Syringe FLUSH PRN ×2 (13:50→14:13)
[2020-10-03] MEDS ORDERED: Iopamidol 612 MG/ML 100 ML Bottle IVPUSH ONE (13:58)
[2020-10-03] MEDS ORDERED: Iopamidol 612 MG/ML 50 ML SDV IVPUSH ONE (13:59)
--- NOTE | 2020-10-03 15:08 | PCM.CONS ---
H&P History of Present Illness - General Date of Service: 10/03/20 Admit Problem/Dx: Brought in with concern for possible infection at gastrostomy site, found to have massive pneumoperitoneum as incidental finding on imaging. Source of Information: Provider History Limitations: Reports: Altered Mental Status - History of Present Illness Initial Comments - Free Text/Narative: Mr. Wallace is an 85 yo man with severe dementia who is unable to effectively communicate, brought in from the halfway 5 days after percutaneous endoscopic gastrostomy feeding tube placement for malnutrition with Dr. Meyers. There was reported concern of green drainage around the insertion site suggesting possible infection. A chest-x-ray was ordered with incidental finding of massive pneumoperitoneum. On exam, the gastrostomy site appears normal and the abdomen is soft and nontender. WBC is 9. A subsequent CT scan shows proper positioning of the gastrostomy tube flange within the stomach, without intraperitoneal fluid. - Related Data Allergies/Adverse Reactions: Allergies Allergy/AdvReac Type Severity Reaction Status Date / Time No Known Allergies Allergy Verified 09/25/20 10:06 Home Medications: Home Meds Montelukast [Singulair] 10 mg PO DAILY 02/20/19 [History] Acetaminophen [Tylenol] 650 mg PO Q4H PRN 04/11/20 [History] Cholecalciferol (Vitamin D3) [Vitamin D3] 25 mcg PO DAILY 04/11/20 [History] Latanoprost/Pf [Latanoprost 0.005% Eye Drop] 1 drop EYEBOTH BEDTIME 04/11/20 [History] Ondansetron [Zofran ODT] 4 mg PO Q6H PRN 04/11/20 [History] Docusate Sodium [Colace] 100 mg PO DAILY PRN 06/28/20 [History] Sennosides [Senna] 8.6 mg PO DAILY PRN 06/28/20 [History] Albuterol/Ipratropium [DuoNeb 3.0-0.5 MG/3 ML] 3 ml NEB BID 09/25/20 [History] Past Medical History HEENT History: Reports: Other (See Below) Other HEENT History: dysphagia, nasal turbinate hypertrophy Cardiovascular History: Reports: High Cholesterol, Hypertension, Other (See Below) Other Cardiovascular History: vasculitis Respiratory History: Reports: Asthma, COPD, Pneumonia, Recurrent, Other (See Below) Other Respiratory History: Wheezing, "other abnormalities of breathing." Gastrointestinal History: Reports: Chronic Constipation, Other (See Below) Other Gastrointestinal History: Nausea. Dysphagia. Genitourinary History: Reports: Renal Calculus ALUMINUM POLISHER History: Reports: None Musculoskeletal History: Reports: Arthritis Neurological History: Reports: Alzheimers Disease, Speech Problems, Other (See Below) Other Neuro History: intracranial bleed, fall, head injury Psychiatric History: Reports: Alzheimers Disease, Dementia Endocrine/Metabolic History: Reports: Other (See Below) Other Endocrine/Metabolic History: impaired fasting glucose Hematologic History: Reports: None Immunologic History: Reports: None Oncologic (Cancer) History: Reports: None Dermatologic History: Reports: Other (See Below) Other Dermatologic History: scalp laceration - Past Surgical History Head Surgeries/Procedures: Reports: None HEENT Surgical History: Reports: Cataract Surgery Cardiovascular Surgical History: Reports: None Respiratory Surgical History: Reports: None GI Surgical History: Reports: None Male Surgical History: Reports: None Endocrine Surgical History: Reports: None Neurological Surgical History: Reports: None Musculoskeletal Surgical History: Reports: None Oncologic Surgical History: Reports: None Dermatological Surgical History: Reports: None Social & Family History - Family History Family Medical History: No Pertinent Family History - Tobacco Use Tobacco Use Status *Q: Never Tobacco User Second Hand Smoke Exposure: No - Caffeine Use Caffeine Use: Reports: None Caffeine Use Comment: Unknown. - Recreational Drug Use Recreational Drug Use: No H&P Review of Systems - Review of Systems: Review Of Systems: Unable To Obtain Reason Not Obtained: dementia, advanced Exam - Exam Exam: See Below - Vital Signs Vital Signs: Last Vital Signs Temp 36.3 C 10/03/20 12:13 Pulse 100 10/03/20 12:13 Resp 20 10/03/20 12:13 BP 102/64 10/03/20 12:13 Pulse Ox 93 L 10/03/20 12:13 - Exam General: Other (awake, no distress, unable to effectively communicate) GI/Abdominal Exam: Other (gastrostomy tube in place with outer flange snug but not tight. No drainage around insertion site or skin irritation. There is no abdominal rigidity or guarding, no apparent tenderness to palpation. ) Skin: Warm, Dry - Patient Data Lab Results Last 24 hrs: Laboratory Results - last 24 hr 10/03/20 10/03/20 Range/Units 12:48 12:48 WBC 9.94 H (4.23-9.07) K/mm3 RBC 4.32 L (4.63-6.08) M/mm3 Hgb 13.3 L (13.7-17.5) gm/dl Hct 39.9 L (40.1-51.0) % MCV 92.4 H (79.0-92.2) fl MCH 30.8 (25.7-32.2) pg MCHC 33.3 (32.2-35.5) g/dl RDW Std Deviation 45.0 H (35.1-43.9) fL Plt Count 182 (163-337) K/mm3 MPV 10.3 (9.4-12.3) fl Neut % (Auto) 90.7 H (34.0-67.9) % Lymph % (Auto) 3.1 L (21.8-53.1) % [place] % (Auto) 5.9 (5.3-12.2) % Eos % (Auto) 0 L (0.8-7.0) Baso % (Auto) 0.1 (0.1-1.2) % Neut # (Auto) 9.01 H (1.78-5.38) K/mm3 Lymph # (Auto) 0.31 L (1.32-3.57) K/mm3 [place] # (Auto) 0.59 (0.30-0.82) K/mm3 Eos # (Auto) 0.00 L (0.04-0.54) K/mm3 Baso # (Auto) 0.01 (0.01-0.08) K/mm3 Manual Slide Review Abnormal smear Sodium 136 (136-145) mEq/L Potassium 4.5 (3.5-5.1) mEq/L Chloride 100 (98-107) mEq/L Carbon Dioxide 27 (21-32) mEq/L Anion Gap 13.5 (5-15) BUN 30 H (7-18) mg/dL Creatinine 1.1 (0.7-1.3) mg/dL Est Cr Clr Drug Dosing TNP Estimated GFR (MDRD) > 60 (>60) mL/min BUN/Creatinine Ratio 27.3 H (14-18) Glucose 174 H (70-99) mg/dL Calcium 8.8 (8.5-10.1) mg/dL Total Bilirubin 0.6 (0.2-1.0) mg/dL AST 10 L (15-37) U/L ALT 21 (16-63) U/L Alkaline Phosphatase 94 (46-116) U/L Total Protein 6.7 (6.4-8.2) g/dl Albumin 2.8 L (3.4-5.0) g/dl Globulin 3.9 gm/dL Albumin/Globulin Ratio 0.7 L (1-2) Result Diagrams: 10/03/20 12:48 10/03/20 12:48 Sepsis Event Note - Evaluation Sepsis Screening Result: No Definite Risk - Focused Exam Vital Signs: Vital Signs Temp Pulse Resp BP Pulse Ox 10/03/20 12:13 36.3 C 100 20 102/64 93 L Consult PN Assessment/Plan Procedures: Procedures AIRWAY INHALATION TREATMENT (09/28/20) COMPLETE CBC W/AUTO DIFF WBC (06/28/20) COMPREHEN METABOLIC PANEL (06/28/20) CT HEAD/BRAIN W/O DYE (09/02/20) EGD BIOPSY SINGLE/MULTIPLE (09/28/20) EGD PLACE GASTROSTOMY TUBE (09/28/20) EMERGENCY DEPT VISIT (09/02/20) EMERGENCY DEPT VISIT (06/28/20) EMERGENCY DEPT VISIT (04/11/20) EMERGENCY DEPT VISIT (02/20/19) IMMUNIZATION ADMIN (04/11/20) MEASURE BLOOD OXYGEN LEVEL (09/28/20) MR-STAPH DNA AMP PROBE (09/28/20) PROTHROMBIN TIME (06/28/20) ROUTINE VENIPUNCTURE (06/28/20) RPR S/N/AX/GEN/TRNK 2.5CM/< (04/11/20) RPR S/N/AX/GEN/TRNK2.6-7.5CM (02/20/19) SARS-COV-2 COVID-19 AMP PRB (09/28/20) TDAP VACCINE 7 YRS/> IM (04/11/20) THER/PROPH/DIAG INJ IV PUSH (06/28/20) THROMBOPLASTIN TIME PARTIAL (06/28/20) Problem List Initiated/Reviewed/Updated: Yes Plan: Assessment: significant free air in abdomen 5 days after PEG placement- no evidence of peritonitis on exam. The clinical picture is not suggestive of an iatrogenic hollow viscus injury from the time of placement. The tube appears to be in good position on CT scan. Recommendations: Goals of care must be clarified with the patient's designated medical decision maker. Currently, the patient appears stable without signs indicating need for emergency laparotomy. However, the finding of pneumoperitoneum is alarming, despite otherwise reassuring physical exam and lab work. I would at least recommend in-hospital observation for signs of decompensation, holding feeds and starting IV PPI treatment as the patient had findings of peptic duodenitis on endoscopy with biopsy and may possibly have a perforated duodenal ulcer. There are no available hospital beds at our facility, so if family or POA is in agreement with plan for hospitalization and close observation, transfer will need to be arranged.
[2020-10-03] MEDS ORDERED: Pantoprazole 40 MG Vial IVPUSH ONE (15:17)
--- NOTE | 2020-10-03 16:07 | EDM.PDOC ---
ED HPI GENERAL MEDICAL PROBLEM - General Chief Complaint: Gastrointestinal Problem Stated Complaint: [facility] Time Seen by Provider: 10/03/20 12:22 Source of Information: Reports: Provider History Limitations: Reports: Altered Mental Status - History of Present Illness INITIAL COMMENTS - FREE TEXT/NARRATIVE: Patient is an 85-year-old male presenting to the emergency department from [facility] with concerns of possible infection to a newly inserted PEG tube. He had PEG tube placement completed on September 28 for dysphagia with history of aspiration. Nursing staff today noticed some greenish discharge surrounding the site, therefore they sent him here for evaluation. On triage, patient was noted to have a slight moist cough. Vital signs were stable in triage patient has been afebrile. Patient has significant dementia and is not able to answer questions appropriately. - Related Data Allergies Allergy/AdvReac Type Severity Reaction Status Date / Time No Known Allergies Allergy Verified 09/25/20 10:06 Home Meds: Home Meds Montelukast [Singulair] 10 mg PO DAILY 02/20/19 [History] Acetaminophen [Tylenol] 650 mg PO Q4H PRN 04/11/20 [History] Cholecalciferol (Vitamin D3) [Vitamin D3] 25 mcg PO DAILY 04/11/20 [History] Latanoprost/Pf [Latanoprost 0.005% Eye Drop] 1 drop EYEBOTH BEDTIME 04/11/20 [History] Ondansetron [Zofran ODT] 4 mg PO Q6H PRN 04/11/20 [History] Docusate Sodium [Colace] 100 mg PO DAILY PRN 06/28/20 [History] Sennosides [Senna] 8.6 mg PO DAILY PRN 06/28/20 [History] Albuterol/Ipratropium [DuoNeb 3.0-0.5 MG/3 ML] 3 ml NEB BID 09/25/20 [History] Past Medical History HEENT History: Reports: Other (See Below) Other HEENT History: dysphagia, nasal turbinate hypertrophy Cardiovascular History: Reports: High Cholesterol, Hypertension, Other (See Below) Other Cardiovascular History: vasculitis Respiratory History: Reports: Asthma, COPD, Pneumonia, Recurrent, Other (See Below) Other Respiratory History: Wheezing, "other abnormalities of breathing." Gastrointestinal History: Reports: Chronic Constipation, Other (See Below) Other Gastrointestinal History: Nausea. Dysphagia. 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 Musculoskeletal History: Reports: Arthritis Neurological History: Reports: Alzheimers Disease, Speech Problems, Other (See Below) Other Neuro History: intracranial bleed, fall, head injury Psychiatric History: Reports: Alzheimers Disease, Dementia Endocrine/Metabolic History: Reports: Other (See Below) Other Endocrine/Metabolic History: impaired fasting glucose Hematologic History: Reports: None Immunologic History: Reports: None Oncologic (Cancer) History: Reports: None Dermatologic History: Reports: Other (See Below) Other Dermatologic History: scalp laceration - Past Surgical History Head Surgeries/Procedures: Reports: None HEENT Surgical History: Reports: Cataract Surgery Cardiovascular Surgical History: Reports: None Respiratory Surgical History: Reports: None GI Surgical History: Reports: None Male Surgical History: Reports: None Endocrine Surgical History: Reports: None Neurological Surgical History: Reports: None Musculoskeletal Surgical History: Reports: None Oncologic Surgical History: Reports: None Dermatological Surgical History: Reports: None Social & Family History - Family History Family Medical History: No Pertinent Family History - Tobacco Use Tobacco Use Status *Q: Never Tobacco User Second Hand Smoke Exposure: No - Caffeine Use Caffeine Use: Reports: None Caffeine Use Comment: Unknown. - Recreational Drug Use Recreational Drug Use: No ED ROS GENERAL - Review of Systems Review Of Systems: See Below Constitutional: Reports: No Symptoms. Denies: Fever HEENT: Reports: No Symptoms Respiratory: Reports: No Symptoms. Denies: Cough Cardiovascular: Reports: No Symptoms Endocrine: Reports: No Symptoms GI/Abdominal: Reports: Other (drainage from PEG tube insertion site per SNF report) : Reports: No Symptoms Musculoskeletal: Reports: No Symptoms Skin: Reports: No Symptoms Neurological: Reports: Confusion (at baseline) Psychiatric: Reports: No Symptoms Hematologic/Lymphatic: Reports: No Symptoms Immunologic: Reports: No Symptoms ED EXAM, GI/ABD - Physical Exam Exam: See Below Exam Limited By: Altered Mental Status General Appearance: Alert, No Apparent Distress, Cachetic Respiratory/Chest: No Respiratory Distress, Lungs Clear, Normal Breath Sounds, No Accessory Muscle Use, Chest Non-Tender Cardiovascular: Normal Peripheral Pulses, Regular Rate, Rhythm, No Edema, No Gallop, No JVD, No Murmur, No Rub GI/Abdominal Exam: Normal Bowel Sounds, Soft, Non-Tender, No Organomegaly, No Distention, No Abnormal Bruit, No Mass, Pelvis Stable, Other (mid abdominal PEG tube . No errythema or drainage to suggest infection.) Neurological: Alert, Confused (at baseline d/t dementia) Skin Exam: Warm, Dry, Intact, Normal Color, No Rash Course - Vital Signs Last Recorded V/S: Last Vital Signs Temp 99.5 F 10/04/20 16:49 Pulse 98 10/04/20 16:49 Resp 20 10/04/20 16:49 BP 104/61 10/04/20 16:49 Pulse Ox 95 10/04/20 16:49 - Orders/Labs/Meds Orders: Medication Orders Acetaminophen (Acetaminophen 650 Mg Supp) 650 mg RECTAL Q6H PRN PRN Reason: Fever Last Admin: 10/03/20 19:28 Dose: 650 mg Documented by: SARAH Enoxaparin Sodium (Enoxaparin 40 Mg/0.4 Ml Syringe) 40 mg SUBCUT Q12H [facility] Dextrose/Sodium Chloride (Dextrose 5%-1/2 Ns) 1,000 mls @ 75 mls/hr IV ASDIRECTED [facility] Last Admin: 10/04/20 11:02 Dose: 75 mls/hr Documented by: Infusion: 10/04/20 08:46 Dose: 75 mls/hr Documented by: Admin: 10/03/20 19:26 Dose: 75 mls/hr Documented by: SARAH Ceftriaxone Sodium 1 gm/ (Sodium Chloride) 100 mls @ 200 mls/hr IV Q24H [facility] Clindamycin Phosphate 900 mg/ (Premix) 50 mls @ 100 mls/hr IV Q8H [facility] Last Admin: 10/04/20 13:35 Dose: 100 mls/hr Documented by: Infusion: 10/04/20 04:57 Dose: 100 mls/hr Documented by: Admin: 10/04/20 04:27 Dose: 100 mls/hr Documented by: Infusion: 10/03/20 20:35 Dose: 100 mls/hr Documented by: Admin: 10/03/20 20:05 Dose: 100 mls/hr Documented by: SARAH Latanoprost (Latanoprost 0.005% Ophth Soln 2.5 Ml Bottle) 0 ml EYEBOTH BEDTIME [facility] Last Admin: 10/03/20 20:48 Dose: Not Given Documented by: Admin: 10/03/20 19:26 Dose: 1 drop Documented by: SARAH Morphine Sulfate (Morphine 2 Mg/Ml Syringe) 2 mg IVPUSH Q4H PRN PRN Reason: Abdominal Pain Last Admin: 10/03/20 19:27 Dose: 2 mg Documented by: SARAH Ondansetron HCl (Ondansetron 4 Mg/2 Ml Sdv) 4 mg IVPUSH Q8H PRN PRN Reason: Abdominal Pain Pantoprazole Sodium (Pantoprazole 40 Mg Vial) 40 mg IVPUSH DAILY [facility] Last Admin: 10/04/20 09:44 Dose: 40 mg Documented by: JACOB Sodium Chloride (Sodium Chloride 0.9% 10 Ml Syringe) 10 ml FLUSH ONETIME PRN PRN Reason: Keep Vein Open Last Admin: 10/03/20 14:13 Dose: 10 ml Documented by: Admin: 10/03/20 13:50 Dose: 10 ml Documented by: JANET Labs: Laboratory Tests 10/03/20 10/03/20 10/03/20 Range/Units 12:48 12:48 16:20 WBC 9.94 H (4.23-9.07) K/mm3 RBC 4.32 L (4.63-6.08) M/mm3 Hgb 13.3 L (13.7-17.5) gm/dl Hct 39.9 L (40.1-51.0) % MCV 92.4 H (79.0-92.2) fl MCH 30.8 (25.7-32.2) pg MCHC 33.3 (32.2-35.5) g/dl RDW Std Deviation 45.0 H (35.1-43.9) fL Plt Count 182 (163-337) K/mm3 MPV 10.3 (9.4-12.3) fl Neut % (Auto) 90.7 H (34.0-67.9) % Lymph % (Auto) 3.1 L (21.8-53.1) % [place] % (Auto) 5.9 (5.3-12.2) % Eos % (Auto) 0 L (0.8-7.0) Baso % (Auto) 0.1 (0.1-1.2) % Neut # (Auto) 9.01 H (1.78-5.38) K/mm3 Lymph # (Auto) 0.31 L (1.32-3.57) K/mm3 [place] # (Auto) 0.59 (0.30-0.82) K/mm3 Eos # (Auto) 0.00 L (0.04-0.54) K/mm3 Baso # (Auto) 0.01 (0.01-0.08) K/mm3 Manual Slide Review Abnormal smear Sodium 136 (136-145) mEq/L Potassium 4.5 (3.5-5.1) mEq/L Chloride 100 (98-107) mEq/L Carbon Dioxide 27 (21-32) mEq/L Anion Gap 13.5 (5-15) BUN 30 H (7-18) mg/dL Creatinine 1.1 (0.7-1.3) mg/dL Est Cr Clr Drug Dosing TNP Estimated GFR (MDRD) > 60 (>60) mL/min BUN/Creatinine Ratio 27.3 H (14-18) Glucose 174 H (70-99) mg/dL Calcium 8.8 (8.5-10.1) mg/dL Total Bilirubin 0.6 (0.2-1.0) mg/dL AST 10 L (15-37) U/L ALT 21 (16-63) U/L Alkaline Phosphatase 94 (46-116) U/L Total Protein 6.7 (6.4-8.2) g/dl Albumin 2.8 L (3.4-5.0) g/dl Globulin 3.9 gm/dL Albumin/Globulin Ratio 0.7 L (1-2) SARS-CoV-2 RNA (MARLINE) Negative (NEGATIVE) Meds: Medications Generic Name Dose Route Start Last Admin Trade Name Freq PRN Reason Stop Dose Admin Acetaminophen 650 mg 10/03/20 19:03 10/03/20 19:28 Acetaminophen 650 Mg Supp RECTAL 650 mg Q6H PRN Administration Fever Enoxaparin Sodium 40 mg 10/05/20 09:00 Enoxaparin 40 Mg/0.4 Ml Syringe SUBCUT Q12H [facility] Dextrose/Sodium Chloride 1,000 mls @ 75 mls/hr 10/03/20 17:15 10/04/20 11:02 Dextrose 5%-1/2 Ns IV 75 mls/hr ASDIRECTED SABI Administration Ceftriaxone Sodium 1 gm/ 100 mls @ 200 mls/hr 10/04/20 20:00 Sodium Chloride IV Q24H [facility]I Clindamycin Phosphate 900 mg/ 50 mls @ 100 mls/hr 10/03/20 20:30 10/04/20 13:35 Premix IV 100 mls/hr Q8H S[facility]I Administration Latanoprost 0 ml 10/03/20 21:00 10/03/20 20:48 Latanoprost 0.005% Ophth Soln 2.5 Ml Bottle EYEBOTH Not Given BEDTIME S[facility]I Morphine Sulfate 2 mg 10/03/20 17:10 10/03/20 19:27 Morphine 2 Mg/Ml Syringe IVPUSH 2 mg Q4H PRN Administration Abdominal Pain Ondansetron HCl 4 mg 10/03/20 17:10 Ondansetron 4 Mg/2 Ml Sdv IVPUSH Q8H PRN Abdominal Pain Pantoprazole Sodium 40 mg 10/04/20 09:00 10/04/20 09:44 Pantoprazole 40 Mg Vial IVPUSH 40 mg DAILY SABI Administration Sodium Chloride 10 ml 10/03/20 13:59 10/03/20 14:13 Sodium Chloride 0.9% 10 Ml Syringe FLUSH 10 ml ONETIME PRN Administration Keep Vein Open Discontinued Medications Generic Name Dose Route Start Last Admin Trade Name Freq PRN Reason Stop Dose Admin Enoxaparin Sodium 40 mg 10/04/20 16:39 10/04/20 16:56 Enoxaparin 40 Mg/0.4 Ml Syringe SUBCUT 10/04/20 16:40 Not Given ONETIME ONE Ceftriaxone Sodium 2 gm/ 100 mls @ 200 mls/hr 10/03/20 19:07 10/03/20 19:26 Sodium Chloride IV 10/03/20 19:36 200 mls/hr ONETIME ONE Administration Iopamidol 100 ml 10/03/20 13:58 10/03/20 14:13 Iopamidol 612 Mg/Ml 100 Ml Bottle IVPUSH 10/03/20 13:59 100 ml ONETIME ONE Administration Pantoprazole Sodium 40 mg 10/03/20 15:17 10/03/20 15:35 Pantoprazole 40 Mg Vial IVPUSH 10/03/20 15:18 40 mg ONETIME ONE Administration - Re-Assessments/Exams Free Text/Narrative Re-Assessment/Exam: Patient is an 85-year-old male presenting to the emergency department from the sn[facility] with concerns of possible infection to an early inset of PEG tube. On exam, there is very slight redness immediately surrounding the tube but no pain, warmth, or visible drainage. I do not suspect infection. Patient did have a moist cough, however lower lung sounds were clear. I have ordered blood work and a two-view chest x-ray. 10/03/20 1325 Chest x-ray shows no evidence of pneumonia, however there is free air under the diaphragm bilaterally. Case was discussed with general surgeon, Dr. Shipley. He indicated this is not a normal occurrence after PEG tube insertion recommended CT scan of the abdomen pelvis and consult with the surgeon who completed his PEG tube, Dr. Benavidez. I have ordered CT scan of the abdomen pelvis. I will contact Dr. Meyers once results are available. 10/03/20 16:06 CT scan of the abdomen pelvis shows prominent pneumoperitoneum, etiology uncertain. 2. To the PEG tube is in the left upper quadrant appears positioned within the gastric lumen. Case was discussed with Dr. Meyers. He reports that the procedure went well and he cannot predict to the possible cause of the pneumoperitoneum. Case was discussed with Dr. Shipley, general surgeon. He would like to place the patient into observation and monitor him as at this point he has no evidence of peritonitis. He did recommend that we start PPI. I will visit with hospitalist, Dr. Cummings for possible admission. 10/03/20 16:11 Case was discussed with Dr. Cummings. He agreed admit the patient observation and Dr. Shipley will consult. Dr. Shipley will contact the patient's guardian to discuss plan of care. Departure - Departure Time of Disposition: 16:11 Disposition: Refer to Observation Condition: Good Clinical Impression: S/P percutaneous endoscopic gastrostomy (PEG) tube placement, Surgical pneumoperitoneum - Discharge Information Sepsis Event Note (ED) - Evaluation Sepsis Screening Result: No Definite Risk
--- NOTE | 2020-10-03 16:42 | PCM.HP.2 ---
H&P History of Present Illness - General Date of Service: 10/03/20 Admit Problem/Dx: Brought in with concern for possible infection at gastrostomy site, found to have massive pneumoperitoneum as incidental finding on imaging. Source of Information: Provider History Limitations: Denies: Altered Mental Status - History of Present Illness Initial Comments - Free Text/Narative: 10/03/20 85 year old male with recent placement of gastric peg with greenish dc noted by nurses at [facility]. seen by [facility] and incidental finding of massive pneumoperitoneum bringing up question of possible perforated ulcer . feeding tube looks appropriately placed in stomach. conservative supportive care recommended by Dr Caballero and family agrees. so admitted for pain contol and comfort measures and observation of status. discussed with kvng arrington and Dr Caballero patient awake but non verbal and states abd pain present.no other hx obtained. p.e. shows elderly quiet male with normal appearing feeding peg without redness or discharge. no air in abd wall and soft abd with low bowel sounds. mild wincing on exam ? rebound rest of exam remarkably for features of dementia . assess: 85 year old male with pneumoperitoneum of unknown cause . plan: admit for observation and pain control. supportive care. patient on comfort measures and hold oral meds . ppi and pain control if this deteriorates. i.v. started and patient is no code // dnr . boh Onset of Symptoms: Reports: Gradual, Unknown/Unsure Duration of Symptoms: Reports: Day(s): Location: Reports: Abdomen Severity: Moderate Worsens with: Reports: Movement - Related Data Allergies/Adverse Reactions: Allergies Allergy/AdvReac Type Severity Reaction Status Date / Time No Known Allergies Allergy Verified 09/25/20 10:06 Home Medications: Home Meds Montelukast [Singulair] 10 mg PO DAILY 02/20/19 [History] Acetaminophen [Tylenol] 650 mg PO Q4H PRN 04/11/20 [History] Cholecalciferol (Vitamin D3) [Vitamin D3] 25 mcg PO DAILY 04/11/20 [History] Latanoprost/Pf [Latanoprost 0.005% Eye Drop] 1 drop EYEBOTH BEDTIME 04/11/20 [History] Ondansetron [Zofran ODT] 4 mg PO Q6H PRN 04/11/20 [History] Docusate Sodium [Colace] 100 mg PO DAILY PRN 06/28/20 [History] Sennosides [Senna] 8.6 mg PO DAILY PRN 06/28/20 [History] Albuterol/Ipratropium [DuoNeb 3.0-0.5 MG/3 ML] 3 ml NEB BID 09/25/20 [History] Past Medical History HEENT History: Reports: Other (See Below) Other HEENT History: dysphagia, nasal turbinate hypertrophy Cardiovascular History: Reports: High Cholesterol, Hypertension, Other (See Below) Other Cardiovascular History: vasculitis Respiratory History: Reports: Asthma, COPD, Pneumonia, Recurrent, Other (See Below) Other Respiratory History: Wheezing, "other abnormalities of breathing." Gastrointestinal History: Reports: Chronic Constipation, Other (See Below) Other Gastrointestinal History: Nausea. Dysphagia. 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 Musculoskeletal History: Reports: Arthritis Neurological History: Reports: Alzheimers Disease, Speech Problems, Other (See Below) Other Neuro History: intracranial bleed, fall, head injury Psychiatric History: Reports: Alzheimers Disease, Dementia Endocrine/Metabolic History: Reports: Other (See Below) Other Endocrine/Metabolic History: impaired fasting glucose Hematologic History: Reports: None Immunologic History: Reports: None Oncologic (Cancer) History: Reports: None Dermatologic History: Reports: Other (See Below) Other Dermatologic History: scalp laceration - Past Surgical History Head Surgeries/Procedures: Reports: None HEENT Surgical History: Reports: Cataract Surgery Cardiovascular Surgical History: Reports: None Respiratory Surgical History: Reports: None GI Surgical History: Reports: None Male Surgical History: Reports: None Endocrine Surgical History: Reports: None Neurological Surgical History: Reports: None Musculoskeletal Surgical History: Reports: None Oncologic Surgical History: Reports: None Dermatological Surgical History: Reports: None Social & Family History - Family History Family Medical History: No Pertinent Family History - Tobacco Use Tobacco Use Status *Q: Never Tobacco User Second Hand Smoke Exposure: No - Caffeine Use Caffeine Use: Reports: None Caffeine Use Comment: Unknown. - Recreational Drug Use Recreational Drug Use: No H&P Review of Systems - Review of Systems: Review Of Systems: Unable To Obtain Reason Not Obtained: non verbal/alzheimer hx of brain bleed in past. General: Reports: No Symptoms, Weakness HEENT: Reports: No Symptoms Pulmonary: Reports: No Symptoms Cardiovascular: Reports: No Symptoms Gastrointestinal: Reports: Abdominal Pain, Anorexia. Denies: Black Stool, Bloody Stool, Distension, Flatus, Nausea, Vomiting Genitourinary: Reports: No Symptoms Musculoskeletal: Reports: Other Skin: Reports: No Symptoms Psychiatric: Reports: Depression Neurological: Reports: Pre-Existing Deficit, Trouble Speaking Exam - Exam Exam: See Below - Vital Signs Vital Signs: Last Vital Signs Temp 37.4 C 10/03/20 15:37 Pulse 106 H 10/03/20 15:37 Resp 18 10/03/20 15:37 BP 121/75 10/03/20 15:37 Pulse Ox 92 L 10/03/20 15:37 - Exam General: Alert, Oriented, 4 HEENT: PERRLA, Hearing Intact, Mucosa Moist & [place], Nares Patent, Normal Nasal Septum, Posterior Pharynx Clear, Conjunctiva Clear, EOMI, EACs Clear, TMs Clear Neck: Supple, Trachea Midline, 2 Lungs: Clear to Auscultation, Normal Respiratory Effort Cardiovascular: Regular Rate, Regular Rhythm GI/Abdominal Exam: Normal Bowel Sounds, Soft, No Organomegaly, No Distention, No Abnormal Bruit, No Mass, Pelvis Stable, Rebound, Tender. No: Non-Tender, Guarding, Rigid (Male) Exam: Circumcised, Deferred. No: No Hernia, Normal Inspection, Normal Prostate Rectal (Males) Exam: Deferred. No: Normal Exam, Normal Rectal Tone, Prostate Normal Back Exam: Normal Inspection, Full Range of Motion, NT Extremities: Normal Inspection, Normal Range of Motion, Non-Tender, No Pedal Edema, Normal Capillary Refill Skin: Warm, Dry, Intact Neurological: Cranial Nerves Intact, Reflexes Equal Bilateral Neuro Extensive - Mental Status: Alert, Oriented x3, Normal Mood/Affect, Normal Cognition Neuro Extensive - Motor, Sensory, Reflexes: CN II-XII Intact, Normal Gait, Normal Reflexes Psychiatric: Alert, Normal Affect, Normal Mood - Patient Data Lab Results Last 24 hrs: Laboratory Results - last 24 hr 10/03/20 10/03/20 Range/Units 12:48 12:48 WBC 9.94 H (4.23-9.07) K/mm3 RBC 4.32 L (4.63-6.08) M/mm3 Hgb 13.3 L (13.7-17.5) gm/dl Hct 39.9 L (40.1-51.0) % MCV 92.4 H (79.0-92.2) fl MCH 30.8 (25.7-32.2) pg MCHC 33.3 (32.2-35.5) g/dl RDW Std Deviation 45.0 H (35.1-43.9) fL Plt Count 182 (163-337) K/mm3 MPV 10.3 (9.4-12.3) fl Neut % (Auto) 90.7 H (34.0-67.9) % Lymph % (Auto) 3.1 L (21.8-53.1) % [place] % (Auto) 5.9 (5.3-12.2) % Eos % (Auto) 0 L (0.8-7.0) Baso % (Auto) 0.1 (0.1-1.2) % Neut # (Auto) 9.01 H (1.78-5.38) K/mm3 Lymph # (Auto) 0.31 L (1.32-3.57) K/mm3 [place] # (Auto) 0.59 (0.30-0.82) K/mm3 Eos # (Auto) 0.00 L (0.04-0.54) K/mm3 Baso # (Auto) 0.01 (0.01-0.08) K/mm3 Manual Slide Review Abnormal smear Sodium 136 (136-145) mEq/L Potassium 4.5 (3.5-5.1) mEq/L Chloride 100 (98-107) mEq/L Carbon Dioxide 27 (21-32) mEq/L Anion Gap 13.5 (5-15) BUN 30 H (7-18) mg/dL Creatinine 1.1 (0.7-1.3) mg/dL Est Cr Clr Drug Dosing TNP Estimated GFR (MDRD) > 60 (>60) mL/min BUN/Creatinine Ratio 27.3 H (14-18) Glucose 174 H (70-99) mg/dL Calcium 8.8 (8.5-10.1) mg/dL Total Bilirubin 0.6 (0.2-1.0) mg/dL AST 10 L (15-37) U/L ALT 21 (16-63) U/L Alkaline Phosphatase 94 (46-116) U/L Total Protein 6.7 (6.4-8.2) g/dl Albumin 2.8 L (3.4-5.0) g/dl Globulin 3.9 gm/dL Albumin/Globulin Ratio 0.7 L (1-2) Result Diagrams: 10/03/20 12:48 10/03/20 12:48 Sepsis Event Note - Evaluation Sepsis Screening Result: No Definite Risk - Focused Exam Vital Signs: Vital Signs Temp Pulse Resp BP Pulse Ox 10/03/20 15:37 37.4 C 106 H 18 121/75 92 L 10/03/20 12:13 36.3 C 100 20 102/64 93 L - Problem List (1) S/P percutaneous endoscopic gastrostomy (PEG) tube placement SNOMED Code(s): 035786784 ICD Code: Z93.1 - GASTROSTOMY STATUS Status: Acute Priority: Medium Current Visit: Yes Onset Date: ~10/03/20 Problem Details: npo/ i.v support.ppi (2) Surgical pneumoperitoneum SNOMED Code(s): 64440508 ICD Code: K66.8 - OTHER SPECIFIED DISORDERS OF PERITONEUM Status: Acute Priority: Medium Current Visit: Yes Onset Date: ~10/03/20 Problem Details: no rigidity/mild rebound? monitor b.s and abd exam (3) Head injury SNOMED Code(s): 67100079 ICD Code: S09.90XA - UNSPECIFIED INJURY OF HEAD, INITIAL ENCOUNTER Status: Acute Priority: Low Current Visit: No Onset Date: Unknown Qualifiers: Encounter type: sequela Qualified Code(s): S09.90XS - Unspecified injury of head, sequela Problem List Initiated/Reviewed/Updated: Yes Orders Last 24hrs: Active Orders 24 hr Category Date Time Status Abdomen Pelvis w Cont [CT] Stat Exams 10/03/20 13:24 Taken Chest 2V [CR] Stat Exams 10/03/20 12:37 Taken CORONAVIRUS COVID-19 MARLINE [MOLEC] Stat Lab 10/03/20 16:20 Received Sodium Chloride 0.9% [Saline Flush] Med 10/03/20 13:59 Active 10 ml FLUSH ONETIME PRN Medication Orders Sodium Chloride (Sodium Chloride 0.9% 10 Ml Syringe) 10 ml FLUSH ONETIME PRN PRN Reason: Keep Vein Open Last Admin: 10/03/20 14:13 Dose: 10 ml Documented by: [id number] Admin: 10/03/20 13:50 Dose: 10 ml Documented by: JANET
--- NOTE | 2020-10-03 16:42 | PCM.SN.2 ---
- Free Text/Narrative Note: I spoke with Ms. Lora, the patient's stepdaughter and designated medical decision-maker on the phone this afternoon. I explained the findings of pneumoperitoneum and concern for possible bowel injury that would require surgery to fix if the goals of care were to prolong his life. He is elderly, frail, dependent of enteral feeding and unable to communicate due to advanced dementia. He would be high risk for emergency surgery and may not recover any desirable quality of life. After discussing his situation and the possibility for acute decompensation while hospitalized, she states that comfort measures rather than emergency laparotomy would align with what she feels the patient's wishes would be.
[2020-10-03] MEDS ORDERED: Morphine 2 MG/ML SYRINGE IVPUSH PRN (17:10)
[2020-10-03] MEDS ORDERED: Ondansetron 4 MG/2 ML SDV IVPUSH PRN (17:10)
[2020-10-03] MEDS ORDERED: Acetaminophen 650 MG Supp RECTAL PRN (19:03)
[2020-10-03] MEDS ORDERED: cefTRIAXone 2 GM in Sodium Chloride 0.9% 100 ML IV ONE (19:07)
[2020-10-03] MEDS: Dextrose 5%-0.45% NaCl 1,000 ML IV SCH (19:26)
[2020-10-03] MEDS: Latanoprost 0.005% Ophth Soln 2.5 ML Bottle EYEBOTH SCH ×2 (19:26→20:48)
[2020-10-03] MEDS: Clindamycin Phosphate in D5W 900 MG in Premix Bag 1 BAG IV SCH ×2 (20:05)
[2020-10-04] MEDS: Clindamycin Phosphate in D5W 900 MG in Premix Bag 1 BAG IV SCH ×6 (04:27→21:45)
--- NOTE | 2020-10-04 09:31 | CT ---
CT abdomen and pelvis Technique: Multiple axial sections were obtained from above the dome of the diaphragm inferiorly through the pubic symphysis. Intravenous contrast was utilized. Delayed images were also obtained through the bladder. Reconstructed coronal and sagittal images were obtained. Comparison: No prior abdominal imaging is available. Findings: Free air is identified within the anterior abdomen. Visualized lung bases show nothing acute. Liver shows a mild low density lesion anteriorly on the right measuring about 2.5 mm which is too small to measure but most likely is due to a small cyst. Additional finding is seen within the left lobe measuring about 3.5 mm which is too small to measure but most likely represents a small cyst. Third lesion is noted within the dome of the right lobe measuring 5 mm most likely due to a small cyst. Fourth finding is seen within the central liver next to the portal vein measuring 6 mm which is nonspecific but most likely represents a small cyst. Mild coronary artery calcification is seen. Spleen size is normal. PEG tube is noted with tip located within the stomach. Gallbladder contains no calcified gallstones. Pancreas shows no discrete abnormality. Kidneys show symmetric contrast enhancement. Minimal cortical lesion noted within the upper left kidney measuring 3 mm in size which is nonspecific but most likely represents a small cyst. No additional abnormality is seen within the kidneys. Adrenal glands show no nodule. Scattered atherosclerotic change is noted within the aorta. No aneurysm is seen. No retroperitoneal adenopathy or mesenteric abnormalities are seen. Appendix is not definitely visualized. Diverticuli are noted within the sigmoid colon. Mild increased stool is seen within the sigmoid colon with focal stool noted within the rectum. No free fluid or inflammatory change is appreciated. Delayed images show minimal contrast within the bladder. Bone window settings were reviewed. Severe disc space narrowing with vacuum phenomena is noted at L2-3. Vacuum phenomena with minimal posterior disc space narrowing is noted at L4-5. Scattered degenerative apophyseal change is noted. Mild scoliosis is noted. Impression: 1. Fair amount of free air. Etiology for this finding is not identified on current study. 2. PEG tube is seen which lies within the stomach. 3. Prominent stool within the rectum. 4. Other findings as noted above which are felt to be chronic. Diagnostic code #5 I agree with preliminary report from [facility], finalized on 10/03/20, 3:45 PM CDT, code 1
[2020-10-04] MEDS: Pantoprazole 40 MG Vial IVPUSH SCH (09:44)
--- NOTE | 2020-10-04 10:48 | CR ---
Chest: AP and lateral views of the chest were obtained. Comparison: No prior chest imaging is available. Subsequent CT abdomen and pelvis study performed on the same day is available. PEG is noted. Prominent soft tissue air is seen below both hemidiaphragms. Lungs are clear with no acute parenchymal change. Heart size and mediastinum are normal. Slight scoliosis is noted within the spine. No acute osseous abnormality is appreciated. Impression: 1. Free abdominal air. 2. PEG is noted. 3. Nothing acute is otherwise seen on 2 view chest x-ray. Diagnostic code #3
[2020-10-04] MEDS: Dextrose 5%-0.45% NaCl 1,000 ML IV SCH (11:02)
--- NOTE | 2020-10-04 11:29 | PCM.SN.2 ---
- Free Text/Narrative Note: 85 yo man with advanced dementia and malnutrition requiring gastrostomy tube for enteral feeds presents with pneumoperitoneum 5 days after PEG placement. Gastrostomy tube appears to be in good position on CT. S: no problems overnight. voiding, passed BM O: Febrile to as high as 38.8 C last evening, with tachycardia around 110 now resolved. BP wnl, SpO2 low 90% on room air. Gen: Arousable, in no distress Pulm: breathing comfortably on room air CV: palpable radial pulse, normal sinus rhythm with occasional skipped beats Abd: gastrostomy in place, clean and intact without drainage. Mild right sided abdominal tenderness, no palpable mass or rigidity MSK: diffuse muscle wasting Skin: warm, dry A: Significant pneumoperitoneum of unclear etiology in patient with recent PEG placement 6 days ago with tube confirmed in proper place on imaging. He does not have an acute abdomen and has been stable overnight, was started on broad spectrum antibiotics and IV PPI with bowel rest. Recent endoscopy with biopsy shows peptic duodenitis, suggesting possible perforated duodenal ulcer. I spoke with his step-daughter, Amie Lora, who clarified that if patient were to develop peritonitis we would pursue comfort measures rather than surgery. P: -recommend repeat CBC to determine WBC this morning. -continue antibiotics, PPI, bowel rest. Recommend leaving g-tube to straight drainage for now. -If he continues to do well for 24 hours, recommend trial of trophic enteral feeds at 10-20 cc/hr
--- NOTE | 2020-10-04 13:58 | PCM.PN ---
- General Info Date of Service: 10/04/20 Admission Dx/Problem (Free Text): Brought in with concern for possible infection at gastrostomy site, found to have massive pneumoperitoneum as incidental finding on imaging. Subjective Update: 10/04/20 afebrile currently last night spiked to 101 antibiotics started cleocin and rocephin i.v. at 75 cc //hour. npo p.e. lungs clear cor rrr. abd flat/no crepatus. b.s active. minimal tenderness/soft. neuro more responsive and states hungry. lab reviewed lytes stable cbc unremarckable. blood c/s no growth so far. assess: pneumoperitoneum s/p peg tube pod 6/ cause unclear ? perferation of viscus no free fluid or phlegmon seen . fever started on empiric antibiotics. day 2 . hypotension resolved/ does not appear septic . Alzheimer disease hx of brain bleed in past. plan ;?better to cont current support and antibiotics /// appears stable . ? etiology//// consider risks of peritoneal spill of contrast to locate possible perforation high . vs empiric care (gastrographin or c t with oral contrast) . restart tube feeding tomorrow if continues clinically stable . discussed with Dr Caballero and in agreement. boh Functional Status: Reports: Pain Controlled - Review of Systems General: Reports: No Symptoms, Fever, Weakness HEENT: Reports: No Symptoms Pulmonary: Reports: No Symptoms Cardiovascular: Reports: No Symptoms Gastrointestinal: Reports: No Symptoms, Abdominal Pain Genitourinary: Reports: No Symptoms Musculoskeletal: Reports: No Symptoms Skin: Reports: No Symptoms Neurological: Reports: No Symptoms, Weakness Psychiatric: Reports: No Symptoms, Confusion - Patient Data Vitals - Most Recent: Last Vital Signs Temp 37.3 C 10/04/20 13:11 Pulse 92 10/04/20 13:11 Resp 24 H 10/04/20 13:11 BP 122/68 10/04/20 13:11 Pulse Ox 92 L 10/04/20 13:11 Weight - Most Recent: 47.899 kg I&O - Last 24 Hours: Intake & Output 10/03/20 10/04/20 10/04/20 22:59 06:59 14:59 Intake Total 626 Balance 626 Imaging Impressions - Last 24 Hours: massive pneumoperitoneum Lab Results Last 24 Hours: Laboratory Results - last 24 hr 10/03/20 10/03/20 10/04/20 Range/Units 16:20 19:25 11:55 WBC 9.91 H (4.23-9.07) K/mm3 RBC 3.98 L (4.63-6.08) M/mm3 Hgb 12.3 L (13.7-17.5) gm/dl Hct 36.8 L (40.1-51.0) % MCV 92.5 H (79.0-92.2) fl MCH 30.9 (25.7-32.2) pg MCHC 33.4 (32.2-35.5) g/dl RDW Std Deviation 45.2 H (35.1-43.9) fL Plt Count 182 (163-337) K/mm3 MPV 10.3 (9.4-12.3) fl Neut % (Auto) 86.7 H (34.0-67.9) % Lymph % (Auto) 5.0 L (21.8-53.1) % [place] % (Auto) 7.8 (5.3-12.2) % Eos % (Auto) 0.2 L (0.8-7.0) Baso % (Auto) 0.1 (0.1-1.2) % Neut # (Auto) 8.59 H (1.78-5.38) K/mm3 Lymph # (Auto) 0.50 L (1.32-3.57) K/mm3 [place] # (Auto) 0.77 (0.30-0.82) K/mm3 Eos # (Auto) 0.02 L (0.04-0.54) K/mm3 Baso # (Auto) 0.01 (0.01-0.08) K/mm3 Manual Slide Review Abnormal smear Sodium (136-145) mEq/L Potassium (3.5-5.1) mEq/L Chloride (98-107) mEq/L Carbon Dioxide (21-32) mEq/L Anion Gap (5-15) BUN (7-18) mg/dL Creatinine (0.7-1.3) mg/dL Est Cr Clr Drug Dosing mL/min Estimated GFR (MDRD) (>60) mL/min BUN/Creatinine Ratio (14-18) Glucose (70-99) mg/dL Lactic Acid 1.2 (0.4-2.0) mmol/L Calcium (8.5-10.1) mg/dL Magnesium (1.8-2.4) mg/dL Total Bilirubin (0.2-1.0) mg/dL AST (15-37) U/L ALT (16-63) U/L Alkaline Phosphatase (46-116) U/L C-Reactive Protein (<1.0) mg/dL Total Protein (6.4-8.2) g/dl Albumin (3.4-5.0) g/dl Globulin gm/dL Albumin/Globulin Ratio (1-2) SARS-CoV-2 RNA (MARLINE) Negative (NEGATIVE) 10/04/20 Range/Units 11:55 WBC (4.23-9.07) K/mm3 RBC (4.63-6.08) M/mm3 Hgb (13.7-17.5) gm/dl Hct (40.1-51.0) % MCV (79.0-92.2) fl MCH (25.7-32.2) pg MCHC (32.2-35.5) g/dl RDW Std Deviation (35.1-43.9) fL Plt Count (163-337) K/mm3 MPV (9.4-12.3) fl Neut % (Auto) (34.0-67.9) % Lymph % (Auto) (21.8-53.1) % [place] % (Auto) (5.3-12.2) % Eos % (Auto) (0.8-7.0) Baso % (Auto) (0.1-1.2) % Neut # (Auto) (1.78-5.38) K/mm3 Lymph # (Auto) (1.32-3.57) K/mm3 [place] # (Auto) (0.30-0.82) K/mm3 Eos # (Auto) (0.04-0.54) K/mm3 Baso # (Auto) (0.01-0.08) K/mm3 Manual Slide Review Sodium 136 (136-145) mEq/L Potassium 4.2 (3.5-5.1) mEq/L Chloride 101 (98-107) mEq/L Carbon Dioxide 27 (21-32) mEq/L Anion Gap 12.2 (5-15) BUN 26 H (7-18) mg/dL Creatinine 1.1 (0.7-1.3) mg/dL Est Cr Clr Drug Dosing 34.47 mL/min Estimated GFR (MDRD) > 60 (>60) mL/min BUN/Creatinine Ratio 23.6 H (14-18) Glucose 167 H (70-99) mg/dL Lactic Acid (0.4-2.0) mmol/L Calcium 8.2 L (8.5-10.1) mg/dL Magnesium 1.9 (1.8-2.4) mg/dL Total Bilirubin 0.4 (0.2-1.0) mg/dL AST 9 L (15-37) U/L ALT 17 (16-63) U/L Alkaline Phosphatase 86 (46-116) U/L C-Reactive Protein 35.2 H* (<1.0) mg/dL Total Protein 6.0 L (6.4-8.2) g/dl Albumin 2.3 L (3.4-5.0) g/dl Globulin 3.7 gm/dL Albumin/Globulin Ratio 0.6 L (1-2) SARS-CoV-2 RNA (MARLINE) (NEGATIVE) Med Orders - Current: Current Medications Acetaminophen (Acetaminophen 650 Mg Supp) 650 mg RECTAL Q6H PRN PRN Reason: Fever Last Admin: 10/03/20 19:28 Dose: 650 mg Documented by: Dextrose/Sodium Chloride (Dextrose 5%-1/2 Ns) 1,000 mls @ 75 mls/hr IV ASDIRECTED [facility] Last Admin: 10/04/20 11:02 Dose: 75 mls/hr Documented by: Ceftriaxone Sodium 1 gm/ (Sodium Chloride) 100 mls @ 200 mls/hr IV Q24H [facility] Clindamycin Phosphate 900 mg/ (Premix) 50 mls @ 100 mls/hr IV Q8H [facility] Last Admin: 10/04/20 13:35 Dose: 100 mls/hr Documented by: Latanoprost (Latanoprost 0.005% Ophth Soln 2.5 Ml Bottle) 0 ml EYEBOTH BEDTIME [facility] Last Admin: 10/03/20 20:48 Dose: Not Given Documented by: Morphine Sulfate (Morphine 2 Mg/Ml Syringe) 2 mg IVPUSH Q4H PRN PRN Reason: Abdominal Pain Last Admin: 10/03/20 19:27 Dose: 2 mg Documented by: Ondansetron HCl (Ondansetron 4 Mg/2 Ml Sdv) 4 mg IVPUSH Q8H PRN PRN Reason: Abdominal Pain Pantoprazole Sodium (Pantoprazole 40 Mg Vial) 40 mg IVPUSH DAILY [facility] Last Admin: 10/04/20 09:44 Dose: 40 mg Documented by: Sodium Chloride (Sodium Chloride 0.9% 10 Ml Syringe) 10 ml FLUSH ONETIME PRN PRN Reason: Keep Vein Open Last Admin: 10/03/20 14:13 Dose: 10 ml Documented by: Discontinued Medications Ceftriaxone Sodium 2 gm/ (Sodium Chloride) 100 mls @ 200 mls/hr IV ONETIME ONE Stop: 10/03/20 19:36 Last Admin: 10/03/20 19:26 Dose: 200 mls/hr Documented by: Iopamidol (Iopamidol 612 Mg/Ml 100 Ml Bottle) 100 ml IVPUSH ONETIME ONE Stop: 10/03/20 13:59 Last Admin: 10/03/20 14:13 Dose: 100 ml Documented by: Pantoprazole Sodium (Pantoprazole 40 Mg Vial) 40 mg IVPUSH ONETIME ONE Stop: 10/03/20 15:18 Last Admin: 10/03/20 15:35 Dose: 40 mg Documented by: Comments:: feels better/ less abd pain wants to eat. - Patient Data Lab Results Last 24 hrs: Laboratory Results - last 24 hr 10/03/20 10/03/20 10/04/20 Range/Units 16:20 19:25 11:55 WBC 9.91 H (4.23-9.07) K/mm3 RBC 3.98 L (4.63-6.08) M/mm3 Hgb 12.3 L (13.7-17.5) gm/dl Hct 36.8 L (40.1-51.0) % MCV 92.5 H (79.0-92.2) fl MCH 30.9 (25.7-32.2) pg MCHC 33.4 (32.2-35.5) g/dl RDW Std Deviation 45.2 H (35.1-43.9) fL Plt Count 182 (163-337) K/mm3 MPV 10.3 (9.4-12.3) fl Neut % (Auto) 86.7 H (34.0-67.9) % Lymph % (Auto) 5.0 L (21.8-53.1) % [place] % (Auto) 7.8 (5.3-12.2) % Eos % (Auto) 0.2 L (0.8-7.0) Baso % (Auto) 0.1 (0.1-1.2) % Neut # (Auto) 8.59 H (1.78-5.38) K/mm3 Lymph # (Auto) 0.50 L (1.32-3.57) K/mm3 [place] # (Auto) 0.77 (0.30-0.82) K/mm3 Eos # (Auto) 0.02 L (0.04-0.54) K/mm3 Baso # (Auto) 0.01 (0.01-0.08) K/mm3 Manual Slide Review Abnormal smear Sodium (136-145) mEq/L Potassium (3.5-5.1) mEq/L Chloride (98-107) mEq/L Carbon Dioxide (21-32) mEq/L Anion Gap (5-15) BUN (7-18) mg/dL Creatinine (0.7-1.3) mg/dL Est Cr Clr Drug Dosing mL/min Estimated GFR (MDRD) (>60) mL/min BUN/Creatinine Ratio (14-18) Glucose (70-99) mg/dL Lactic Acid 1.2 (0.4-2.0) mmol/L Calcium (8.5-10.1) mg/dL Magnesium (1.8-2.4) mg/dL Total Bilirubin (0.2-1.0) mg/dL AST (15-37) U/L ALT (16-63) U/L Alkaline Phosphatase (46-116) U/L C-Reactive Protein (<1.0) mg/dL Total Protein (6.4-8.2) g/dl Albumin (3.4-5.0) g/dl Globulin gm/dL Albumin/Globulin Ratio (1-2) SARS-CoV-2 RNA (MARLINE) Negative (NEGATIVE) 10/04/20 Range/Units 11:55 WBC (4.23-9.07) K/mm3 RBC (4.63-6.08) M/mm3 Hgb (13.7-17.5) gm/dl Hct (40.1-51.0) % MCV (79.0-92.2) fl MCH (25.7-32.2) pg MCHC (32.2-35.5) g/dl RDW Std Deviation (35.1-43.9) fL Plt Count (163-337) K/mm3 MPV (9.4-12.3) fl Neut % (Auto) (34.0-67.9) % Lymph % (Auto) (21.8-53.1) % [place] % (Auto) (5.3-12.2) % Eos % (Auto) (0.8-7.0) Baso % (Auto) (0.1-1.2) % Neut # (Auto) (1.78-5.38) K/mm3 Lymph # (Auto) (1.32-3.57) K/mm3 [place] # (Auto) (0.30-0.82) K/mm3 Eos # (Auto) (0.04-0.54) K/mm3 Baso # (Auto) (0.01-0.08) K/mm3 Manual Slide Review Sodium 136 (136-145) mEq/L Potassium 4.2 (3.5-5.1) mEq/L Chloride 101 (98-107) mEq/L Carbon Dioxide 27 (21-32) mEq/L Anion Gap 12.2 (5-15) BUN 26 H (7-18) mg/dL Creatinine 1.1 (0.7-1.3) mg/dL Est Cr Clr Drug Dosing 34.47 mL/min Estimated GFR (MDRD) > 60 (>60) mL/min BUN/Creatinine Ratio 23.6 H (14-18) Glucose 167 H (70-99) mg/dL Lactic Acid (0.4-2.0) mmol/L Calcium 8.2 L (8.5-10.1) mg/dL Magnesium 1.9 (1.8-2.4) mg/dL Total Bilirubin 0.4 (0.2-1.0) mg/dL AST 9 L (15-37) U/L ALT 17 (16-63) U/L Alkaline Phosphatase 86 (46-116) U/L C-Reactive Protein 35.2 H* (<1.0) mg/dL Total Protein 6.0 L (6.4-8.2) g/dl Albumin 2.3 L (3.4-5.0) g/dl Globulin 3.7 gm/dL Albumin/Globulin Ratio 0.6 L (1-2) SARS-CoV-2 RNA (MARLINE) (NEGATIVE) Result Diagrams: 10/04/20 11:55 10/04/20 11:55 Sepsis Event Note - Evaluation Sepsis Screening Result: No Definite Risk Current Stage of Sepsis: Ruled Out Reason for Ruling Out Sepsis: fever/pneumoperitoneum Possible Source of Sepsis: GI Tract/Intra-abdominal - Focused Exam Vital Signs: Vital Signs Temp Pulse Resp BP Pulse Ox 10/04/20 13:11 37.3 C 92 24 H 122/68 92 L 10/04/20 07:49 37.8 C 106 H 24 H 106/62 93 L 10/04/20 04:59 36.7 C 10/04/20 04:38 37.8 C 10/04/20 04:31 37.1 C 105 H 16 107/64 93 L Pulse Description: 2+ Normal - Bedside Monitoring CVP Measures: Less than 8 ScvO2 Measures: Greater than or Equal to 70% Passive Leg Raise/Fluid Bolus: Not Performed Date Bedside Monitoring was Performed: 10/04/20 Time Bedside Monitoring was Performed: 13:59 - Problem List & Annotations (1) S/P percutaneous endoscopic gastrostomy (PEG) tube placement SNOMED Code(s): 953560982 Code(s): Z93.1 - GASTROSTOMY STATUS Status: Acute Priority: Medium Current Visit: Yes Onset Date: ~10/03/20 Annotation/Comment:: npo/ i.v support.ppi. possible perferated viscus. (2) Surgical pneumoperitoneum SNOMED Code(s): 86448478 Code(s): K66.8 - OTHER SPECIFIED DISORDERS OF PERITONEUM Status: Acute Priority: Low Current Visit: Yes Onset Date: ~10/03/20 Annotation/Comment:: no rigidity/mild rebound? monitor b.s and abd exam. better today much less pain /no rebound (3) Head injury SNOMED Code(s): 06675858 Code(s): S09.90XA - UNSPECIFIED INJURY OF HEAD, INITIAL ENCOUNTER Status: Acute Priority: Low Current Visit: No Onset Date: Unknown Qualifiers: Encounter type: sequela Qualified Code(s): S09.90XS - Unspecified injury of head, sequela (4) Dehydration SNOMED Code(s): 23660126 Code(s): E86.0 - DEHYDRATION Status: Acute Priority: Medium Current Visit: Yes Onset Date: ~10/03/20 - Problem List Review Problem List Initiated/Reviewed/Updated: Yes - My Orders Last 24 Hours: My Active Orders 10/03/20 16:57 Oxygen Therapy [RC] PRN VTE/DVT Education [RC] Resuscitation Status Routine 10/03/20 17:03 Anticoagulation Contraindications VTE [AST] ASDIRECTED 10/03/20 17:04 Vital Signs [RC] Q4HR 10/03/20 17:05 Pulse Oximetry [RC] ASDIRECTED 10/03/20 17:10 Morphine 2 mg IVPUSH Q4H PRN Ondansetron [Zofran] 4 mg IVPUSH Q8H PRN 10/03/20 17:15 Dextrose 5%-0.45% NaCl [Dextrose 5%-1/2 NS] 1,000 ml IV ASDIRECTED 10/03/20 19:03 Acetaminophen [Tylenol] 650 mg RECTAL Q6H PRN 10/03/20 19:07 Blood Culture x2 Reflex Set [OM.PC] Stat 10/03/20 19:25 BLOOD CULTURE [MREF] Stat 10/03/20 19:35 BLOOD CULTURE [MREF] Stat 10/03/20 20:30 Clindamycin Phosphate in D5W [Cleocin in D5W 900 MG/50 ML] 900 mg Premix Bag 1 bag IV Q8H 10/03/20 21:00 Latanoprost [Xalatan 0.005% Ophth Soln] 0 ml EYEBOTH BEDTIME 10/03/20 23:06 Patient Status [ADT] Routine 10/04/20 Breakfast Nothing Per Oral Diet [DIET] 10/04/20 09:00 Pantoprazole [ProTONIX IV] 40 mg IVPUSH DAILY 10/04/20 20:00 cefTRIAXone [Rocephin] 1 gm Sodium Chloride 0.9% [Normal Saline] 100 ml IV Q24H - Plan Plan:: 10/04/20 afebrile currently last night spiked to 101 antibiotics started cleocin and rocephin i.v. at 75 cc //hour. npo p.e. lungs clear cor rrr. abd flat/no crepatus. b.s active. minimal tenderness/soft. neuro more responsive and states hungry. lab reviewed lytes stable cbc unremarckable. blood c/s no growth so far. assess: pneumoperitoneum s/p peg tube pod 6/ cause unclear ? perferation of viscus no free fluid or phlegmon seen . fever started on empiric antibiotics. day 2 . hypotension resolved/ does not appear septic . Alzheimer disease hx of brain bleed in past. plan ;?better to cont current support and antibiotics /// appears stable . ? etiology//// consider risks of peritoneal spill of contrast to locate possible perforation high . vs empiric care (gastrographin or c t with oral contrast) . restart tube feeding tomorrow if continues clinically stable . discussed with Dr Caballero and in agreement. boh
[2020-10-04] MEDS ORDERED: Enoxaparin 40 MG/0.4 ML Syringe SUBCUT ONE (16:39)
[2020-10-04] MEDS: cefTRIAXone 1 GM in Sodium Chloride 0.9% 100 ML IV SCH (21:12)
[2020-10-04] MEDS: Latanoprost 0.005% Ophth Soln 2.5 ML Bottle EYEBOTH SCH (21:14)
[2020-10-05] MEDS: Clindamycin Phosphate in D5W 900 MG in Premix Bag 1 BAG IV SCH ×6 (04:18→21:52)
[2020-10-05] MEDS: Dextrose 5%-0.45% NaCl 1,000 ML IV SCH ×2 (04:20→17:51)
--- NOTE | 2020-10-05 07:59 | PCM.SN.2 ---
- Free Text/Narrative Note: 85 yo man with advanced dementia and malnutrition requiring gastrostomy tube for enteral feeds presents with pneumoperitoneum 5 days after PEG placement. Gastrostomy tube appears to be in good position on CT. S: no problems overnight. voiding, passing BM O: No fever overnight. HR 90s. BP lower at 90s/40s, SpO2 low 90s% on room air Gen: Arousable, in no distress Pulm: breathing comfortably on room air CV: palpable radial pulse, normal sinus rhythm with occasional skipped beats Abd: gastrostomy in place, clean and intact without drainage. Mild right sided abdominal tenderness, no palpable mass or rigidity MSK: diffuse muscle wasting Skin: warm, dry A: Significant pneumoperitoneum of unclear etiology in patient with recent PEG placement 6 days ago with tube confirmed in proper place on imaging. He does not have an acute abdomen and has been stable now in hospital for ~48 hours, currently on broad spectrum antibiotics and IV PPI with bowel rest. Recent endoscopy with biopsy shows peptic duodenitis, suggesting possible perforated duodenal ulcer. I spoke with his step-daughter, Amie Lora, who clarified that if patient were to develop peritonitis we would pursue comfort measures rather than surgery. WBC wnl on recheck. P: -continue antibiotics, PPI, bowel rest. Recommend leaving g-tube to straight drainage for now. -If he appears well clinically, recommend trial of trophic enteral feeds at 10- 20 cc/hr starting this afternoon.
[2020-10-05] MEDS: Pantoprazole 40 MG Vial IVPUSH SCH (08:57)
[2020-10-05] MEDS: Enoxaparin 40 MG/0.4 ML Syringe SUBCUT SCH ×2 (08:57→21:04)
--- NOTE | 2020-10-05 14:30 | PCM.PN ---
- General Info Date of Service: 10/05/20 Admission Dx/Problem (Free Text): Brought in with concern for possible infection at gastrostomy site, found to have massive pneumoperitoneum as incidental finding on imaging. Subjective Update: Overnight events reviewed patient sleepy this AM states abdominal pain controlled - Patient Data Vitals - Most Recent: Last Vital Signs Temp 98.2 F 10/05/20 08:18 Pulse 90 10/05/20 08:18 Resp 16 10/05/20 08:18 BP 97/53 L 10/05/20 08:18 Pulse Ox 94 L 10/05/20 08:18 Weight - Most Recent: 106 lb 1.6 oz I&O - Last 24 Hours: Intake & Output 10/04/20 10/05/20 10/05/20 22:59 06:59 14:59 Intake Total 1050 1170 Output Total 2 125 Balance 1048 1045 Lab Results Last 24 Hours: Laboratory Results - last 24 hr 10/04/20 10/05/20 10/05/20 Range/Units 11:55 05:47 05:47 WBC 8.71 (4.23-9.07) K/mm3 RBC 4.17 L (4.63-6.08) M/mm3 Hgb 12.7 L (13.7-17.5) gm/dl Hct 38.9 L (40.1-51.0) % MCV 93.3 H (79.0-92.2) fl MCH 30.5 (25.7-32.2) pg MCHC 32.6 (32.2-35.5) g/dl RDW Std Deviation 44.7 H (35.1-43.9) fL Plt Count 192 (163-337) K/mm3 MPV 10.4 (9.4-12.3) fl Neut % (Auto) 82.8 H (34.0-67.9) % Lymph % (Auto) 6.5 L (21.8-53.1) % [place] % (Auto) 9.1 (5.3-12.2) % Eos % (Auto) 1.3 (0.8-7.0) Baso % (Auto) 0.1 (0.1-1.2) % Neut # (Auto) 7.21 H (1.78-5.38) K/mm3 Lymph # (Auto) 0.57 L (1.32-3.57) K/mm3 [place] # (Auto) 0.79 (0.30-0.82) K/mm3 Eos # (Auto) 0.11 (0.04-0.54) K/mm3 Baso # (Auto) 0.01 (0.01-0.08) K/mm3 Manual Slide Review Abnormal smear Sodium 138 (136-145) mEq/L Potassium 4.0 (3.5-5.1) mEq/L Chloride 102 (98-107) mEq/L Carbon Dioxide 28 (21-32) mEq/L Anion Gap 12.0 (5-15) BUN 23 H (7-18) mg/dL Creatinine 1.2 (0.7-1.3) mg/dL Est Cr Clr Drug Dosing 31.75 mL/min Estimated GFR (MDRD) 58 (>60) mL/min BUN/Creatinine Ratio 19.2 H (14-18) Glucose 153 H (70-99) mg/dL Calcium 8.0 L (8.5-10.1) mg/dL Magnesium 2.1 (1.8-2.4) mg/dL Total Bilirubin 0.4 (0.2-1.0) mg/dL AST 17 (15-37) U/L ALT 20 (16-63) U/L Alkaline Phosphatase 92 (46-116) U/L C-Reactive Protein 30.5 H* (<1.0) mg/dL Total Protein 6.3 L (6.4-8.2) g/dl Albumin 2.3 L (3.4-5.0) g/dl Globulin 4.0 gm/dL Albumin/Globulin Ratio 0.6 L (1-2) Procalcitonin 6.21 H ng/mL Cliff Results Last 24 Hours: Microbiology 10/03/20 19:25 Blood Culture - Preliminary Blood - Venous - Lab Draw 10/03/20 19:35 Blood Culture - Preliminary Blood - Venous - Lab Draw Med Orders - Current: Current Medications Acetaminophen (Acetaminophen 650 Mg Supp) 650 mg RECTAL Q6H PRN PRN Reason: Fever Last Admin: 10/03/20 19:28 Dose: 650 mg Documented by: Enoxaparin Sodium (Enoxaparin 40 Mg/0.4 Ml Syringe) 40 mg SUBCUT Q12H [facility] Last Admin: 10/05/20 08:57 Dose: 40 mg Documented by: Dextrose/Sodium Chloride (Dextrose 5%-1/2 Ns) 1,000 mls @ 75 mls/hr IV ASDIRECTED [facility] Last Admin: 10/05/20 04:20 Dose: 75 mls/hr Documented by: Ceftriaxone Sodium 1 gm/ (Sodium Chloride) 100 mls @ 200 mls/hr IV Q24H [facility] Last Admin: 10/04/20 21:12 Dose: 200 mls/hr Documented by: Clindamycin Phosphate 900 mg/ (Premix) 50 mls @ 100 mls/hr IV Q8H [facility] Last Admin: 10/05/20 13:41 Dose: 100 mls/hr Documented by: Latanoprost (Latanoprost 0.005% Ophth Soln 2.5 Ml Bottle) 0 ml EYEBOTH BEDTIME [facility] Last Admin: 10/04/20 21:14 Dose: 1 drop Documented by: Morphine Sulfate (Morphine 2 Mg/Ml Syringe) 2 mg IVPUSH Q4H PRN PRN Reason: Abdominal Pain Last Admin: 10/03/20 19:27 Dose: 2 mg Documented by: Ondansetron HCl (Ondansetron 4 Mg/2 Ml Sdv) 4 mg IVPUSH Q8H PRN PRN Reason: Abdominal Pain Pantoprazole Sodium (Pantoprazole 40 Mg Vial) 40 mg IVPUSH DAILY [facility] Last Admin: 10/05/20 08:57 Dose: 40 mg Documented by: Discontinued Medications Enoxaparin Sodium (Enoxaparin 40 Mg/0.4 Ml Syringe) 40 mg SUBCUT ONETIME ONE Stop: 10/04/20 16:40 Last Admin: 10/04/20 16:56 Dose: Not Given Documented by: Ceftriaxone Sodium 2 gm/ (Sodium Chloride) 100 mls @ 200 mls/hr IV ONETIME ONE Stop: 10/03/20 19:36 Last Admin: 10/03/20 19:26 Dose: 200 mls/hr Documented by: Iopamidol (Iopamidol 612 Mg/Ml 100 Ml Bottle) 100 ml IVPUSH ONETIME ONE Stop: 10/03/20 13:59 Last Admin: 10/03/20 14:13 Dose: 100 ml Documented by: Pantoprazole Sodium (Pantoprazole 40 Mg Vial) 40 mg IVPUSH ONETIME ONE Stop: 10/03/20 15:18 Last Admin: 10/03/20 15:35 Dose: 40 mg Documented by: Sodium Chloride (Sodium Chloride 0.9% 10 Ml Syringe) 10 ml FLUSH ONETIME PRN PRN Reason: Keep Vein Open Last Admin: 10/03/20 14:13 Dose: 10 ml Documented by: - Exam General: No Acute Distress HEENT: EOMI Neck: Supple Lungs: Clear to Auscultation Cardiovascular: Regular Rate, Regular Rhythm GI/Abdominal Exam: Soft, Non-Tender Skin: Warm, Dry Neurological: No New Focal Deficit - Patient Data Lab Results Last 24 hrs: Laboratory Results - last 24 hr 10/04/20 10/05/20 10/05/20 Range/Units 11:55 05:47 05:47 WBC 8.71 (4.23-9.07) K/mm3 RBC 4.17 L (4.63-6.08) M/mm3 Hgb 12.7 L (13.7-17.5) gm/dl Hct 38.9 L (40.1-51.0) % MCV 93.3 H (79.0-92.2) fl MCH 30.5 (25.7-32.2) pg MCHC 32.6 (32.2-35.5) g/dl RDW Std Deviation 44.7 H (35.1-43.9) fL Plt Count 192 (163-337) K/mm3 MPV 10.4 (9.4-12.3) fl Neut % (Auto) 82.8 H (34.0-67.9) % Lymph % (Auto) 6.5 L (21.8-53.1) % [place] % (Auto) 9.1 (5.3-12.2) % Eos % (Auto) 1.3 (0.8-7.0) Baso % (Auto) 0.1 (0.1-1.2) % Neut # (Auto) 7.21 H (1.78-5.38) K/mm3 Lymph # (Auto) 0.57 L (1.32-3.57) K/mm3 [place] # (Auto) 0.79 (0.30-0.82) K/mm3 Eos # (Auto) 0.11 (0.04-0.54) K/mm3 Baso # (Auto) 0.01 (0.01-0.08) K/mm3 Manual Slide Review Abnormal smear Sodium 138 (136-145) mEq/L Potassium 4.0 (3.5-5.1) mEq/L Chloride 102 (98-107) mEq/L Carbon Dioxide 28 (21-32) mEq/L Anion Gap 12.0 (5-15) BUN 23 H (7-18) mg/dL Creatinine 1.2 (0.7-1.3) mg/dL Est Cr Clr Drug Dosing 31.75 mL/min Estimated GFR (MDRD) 58 (>60) mL/min BUN/Creatinine Ratio 19.2 H (14-18) Glucose 153 H (70-99) mg/dL Calcium 8.0 L (8.5-10.1) mg/dL Magnesium 2.1 (1.8-2.4) mg/dL Total Bilirubin 0.4 (0.2-1.0) mg/dL AST 17 (15-37) U/L ALT 20 (16-63) U/L Alkaline Phosphatase 92 (46-116) U/L C-Reactive Protein 30.5 H* (<1.0) mg/dL Total Protein 6.3 L (6.4-8.2) g/dl Albumin 2.3 L (3.4-5.0) g/dl Globulin 4.0 gm/dL Albumin/Globulin Ratio 0.6 L (1-2) Procalcitonin 6.21 H ng/mL Result Diagrams: 10/05/20 05:47 10/05/20 05:47 Cliff Results Last 24 hrs: Microbiology 10/03/20 19:25 Blood Culture - Preliminary Blood - Venous - Lab Draw 10/03/20 19:35 Blood Culture - Preliminary Blood - Venous - Lab Draw Sepsis Event Note - Evaluation Sepsis Screening Result: No Definite Risk - Focused Exam Vital Signs: Vital Signs Temp Pulse Resp BP Pulse Ox 10/05/20 08:18 98.2 F 90 16 97/53 L 94 L 10/05/20 04:30 98.1 F 88 16 90/44 L 93 L - Problem List Review Problem List Initiated/Reviewed/Updated: Yes - Plan Plan:: 10/04/20 afebrile currently last night spiked to 101 antibiotics started cleocin and rocephin i.v. at 75 cc //hour. npo p.e. lungs clear cor rrr. abd flat/no crepatus. b.s active. minimal tenderness/soft. neuro more responsive and states hungry. lab reviewed lytes stable cbc unremarckable. blood c/s no growth so far. assess: pneumoperitoneum s/p peg tube pod 6/ cause unclear ? perferation of viscus no free fluid or phlegmon seen . fever started on empiric antibiotics. day 2 . hypotension resolved/ does not appear septic . Alzheimer disease hx of brain bleed in past. plan ;?better to cont current support and antibiotics /// appears stable . ? etiology//// consider risks of peritoneal spill of contrast to locate possible perforation high . vs empiric care (gastrographin or c t with oral contrast) . restart tube feeding tomorrow if continues clinically stable . discussed with Dr Caballero and in agreement. [facility] 10/05/20 This is 85M with advanced dementia and malnutrition requiring gastrostomy tube for enteral feeds presenting with pneumoperitoneum 5 days after PEG placement 1. Pneumoperitoneum 2. Hx of alzheimer's dementia 3. hx of dysphagia; s/p G tube placement 4. Hx of Asthma/COPD 5. hx of constipation 6. Hx of HTN 7. Hx of HLD Plan -continue antibiotics for now -Surgery consulted -alarm installer consult for nutrition recs on TF -continue PPI Code Status-DNR/DNI
[2020-10-05] MEDS: Latanoprost 0.005% Ophth Soln 2.5 ML Bottle EYEBOTH SCH (21:04)
[2020-10-05] MEDS: cefTRIAXone 1 GM in Sodium Chloride 0.9% 100 ML IV SCH (21:05)
[2020-10-06] MEDS: Clindamycin Phosphate in D5W 900 MG in Premix Bag 1 BAG IV SCH ×6 (03:41→23:20)
--- NOTE | 2020-10-06 07:30 | PCM.SN.2 ---
- Free Text/Narrative Note: 85 yo man with advanced dementia and malnutrition requiring gastrostomy tube for enteral feeds presents with pneumoperitoneum 5 days after PEG placement. Gastrostomy tube appears to be in good position on CT. S: no problems overnight. Answers yes when asked about abdominal pain, answers yes when asked if he's doing okay. O: AF-VSS Gen: Arousable, in no distress Pulm: breathing comfortably on room air CV: palpable radial pulse, normal sinus rhythm with occasional skipped beats Abd: gastrostomy in place, clean and intact without drainage. Mild right sided abdominal tenderness, no rigidity MSK: diffuse muscle wasting Skin: warm, dry A: Significant pneumoperitoneum of unclear etiology in patient with recent PEG placement one week ago with tube confirmed in proper place on imaging. He does not have an acute abdomen and has been stable now in hospital for ~72 hours, currently on broad spectrum antibiotics and IV PPI with bowel rest. Recent endoscopy with biopsy shows peptic duodenitis, suggesting possibility of perforated duodenal ulcer. I spoke with his step-daughter, Amie Lora, who clarified that if patient were to develop peritonitis we would pursue comfort measures rather than surgery. WBC 6 yesterday. P: -Recommend trial of trophic enteral feeds at 10-20 cc/hr starting this morning- if he tolerates this, would recommend stopping antibiotics and IV fluids and observing for 24 hours.
[2020-10-06] MEDS: Enoxaparin 40 MG/0.4 ML Syringe SUBCUT SCH ×2 (09:06→23:03)
[2020-10-06] MEDS: Pantoprazole 40 MG Vial IVPUSH SCH (09:06)
[2020-10-06] MEDS: Dextrose 5%-0.45% NaCl 1,000 ML IV SCH (09:06)
[2020-10-06] MEDS ORDERED: Dextrose 5%-0.45% NaCl 1,000 ML IV SCH (17:45)
[2020-10-06] MEDS ORDERED: Scopolamine 1.5 MG Transdermal Patch TOP ONE (17:52)
--- NOTE | 2020-10-06 18:55 | PCM.PN ---
- General Info Date of Service: 10/06/20 Admission Dx/Problem (Free Text): Brought in with concern for possible infection at gastrostomy site, found to have massive pneumoperitoneum as incidental finding on imaging. Subjective Update: hx limited due to dementia patient alert this AM but minimally engaging unable to provide hx overnight events reviewed still on antibiotics - Patient Data Vitals - Most Recent: Last Vital Signs Temp 97.9 F 10/06/20 15:01 Pulse 86 10/06/20 15:01 Resp 14 10/06/20 15:01 BP 126/74 10/06/20 15:01 Pulse Ox 100 10/06/20 15:01 Weight - Most Recent: 104 lb 12.8 oz I&O - Last 24 Hours: Intake & Output 10/06/20 10/06/20 10/06/20 06:59 14:59 22:59 Intake Total 900 Output Total 200 Balance 700 Lab Results Last 24 Hours: Laboratory Results - last 24 hr 10/06/20 10/06/20 Range/Units 06:39 06:39 WBC 6.27 (4.23-9.07) K/mm3 RBC 3.85 L (4.63-6.08) M/mm3 Hgb 11.8 L (13.7-17.5) gm/dl Hct 34.9 L (40.1-51.0) % MCV 90.6 (79.0-92.2) fl MCH 30.6 (25.7-32.2) pg MCHC 33.8 (32.2-35.5) g/dl RDW Std Deviation 43.1 (35.1-43.9) fL Plt Count 193 (163-337) K/mm3 MPV 10.0 (9.4-12.3) fl Neut % (Auto) 79.7 H (34.0-67.9) % Lymph % (Auto) 8.0 L (21.8-53.1) % [place] % (Auto) 9.4 (5.3-12.2) % Eos % (Auto) 2.7 (0.8-7.0) Baso % (Auto) 0.2 (0.1-1.2) % Neut # (Auto) 5.00 (1.78-5.38) K/mm3 Lymph # (Auto) 0.50 L (1.32-3.57) K/mm3 [place] # (Auto) 0.59 (0.30-0.82) K/mm3 Eos # (Auto) 0.17 (0.04-0.54) K/mm3 Baso # (Auto) 0.01 (0.01-0.08) K/mm3 Manual Slide Review Normal smear Sodium 136 (136-145) mEq/L Potassium 3.6 (3.5-5.1) mEq/L Chloride 101 (98-107) mEq/L Carbon Dioxide 27 (21-32) mEq/L Anion Gap 11.6 (5-15) BUN 14 (7-18) mg/dL Creatinine 1.0 (0.7-1.3) mg/dL Est Cr Clr Drug Dosing 37.63 mL/min Estimated GFR (MDRD) > 60 (>60) mL/min BUN/Creatinine Ratio 14.0 (14-18) Glucose 147 H (70-99) mg/dL Calcium 7.7 L (8.5-10.1) mg/dL Magnesium 1.8 (1.8-2.4) mg/dL Total Bilirubin 0.4 (0.2-1.0) mg/dL AST 14 L (15-37) U/L ALT 20 (16-63) U/L Alkaline Phosphatase 82 (46-116) U/L C-Reactive Protein 18.7 H* (<1.0) mg/dL Total Protein 5.8 L (6.4-8.2) g/dl Albumin 2.1 L (3.4-5.0) g/dl Globulin 3.7 gm/dL Albumin/Globulin Ratio 0.6 L (1-2) Med Orders - Current: Current Medications Acetaminophen (Acetaminophen 650 Mg Supp) 650 mg RECTAL Q6H PRN PRN Reason: Fever Last Admin: 10/03/20 19:28 Dose: 650 mg Documented by: Enoxaparin Sodium (Enoxaparin 40 Mg/0.4 Ml Syringe) 40 mg SUBCUT Q12H [facility] Last Admin: 10/06/20 09:06 Dose: 40 mg Documented by: Ceftriaxone Sodium 1 gm/ (Sodium Chloride) 100 mls @ 200 mls/hr IV Q24H [facility] Last Admin: 10/05/20 21:05 Dose: 200 mls/hr Documented by: Clindamycin Phosphate 900 mg/ (Premix) 50 mls @ 100 mls/hr IV Q8H [facility] Last Admin: 10/06/20 13:10 Dose: 100 mls/hr Documented by: Dextrose/Sodium Chloride (Dextrose 5%-1/2 Ns) 1,000 mls @ 50 mls/hr IV ASDIRECTED [facility] Latanoprost (Latanoprost 0.005% Ophth Soln 2.5 Ml Bottle) 0 ml EYEBOTH BEDTIME [facility] Last Admin: 10/05/20 21:04 Dose: 1 drop Documented by: Miscellaneous Information (Remove Patch) 1 ea TRDERM ONETIME ONE Stop: 10/09/20 18:01 Morphine Sulfate (Morphine 2 Mg/Ml Syringe) 2 mg IVPUSH Q4H PRN PRN Reason: Abdominal Pain Last Admin: 10/03/20 19:27 Dose: 2 mg Documented by: Ondansetron HCl (Ondansetron 4 Mg/2 Ml Sdv) 4 mg IVPUSH Q8H PRN PRN Reason: Abdominal Pain Pantoprazole Sodium (Pantoprazole 40 Mg Vial) 40 mg IVPUSH DAILY [facility] Last Admin: 10/06/20 09:06 Dose: 40 mg Documented by: Discontinued Medications Enoxaparin Sodium (Enoxaparin 40 Mg/0.4 Ml Syringe) 40 mg SUBCUT ONETIME ONE Stop: 10/04/20 16:40 Last Admin: 10/04/20 16:56 Dose: Not Given Documented by: Dextrose/Sodium Chloride (Dextrose 5%-1/2 Ns) 1,000 mls @ [facility] Admin: 10/06/20 09:06 Dose: 75 mls/hr Documented by: Ceftriaxone Sodium 2 gm/ (Sodium Chloride) 100 mls @ 200 mls/hr IV ONETIME ONE Stop: 10/03/20 19:36 Last Admin: 10/03/20 19:26 Dose: 200 mls/hr Documented by: Iopamidol (Iopamidol 612 Mg/Ml 100 Ml Bottle) 100 ml IVPUSH ONETIME ONE Stop: 10/03/20 13:59 Last Admin: 10/03/20 14:13 Dose: 100 ml Documented by: Pantoprazole Sodium (Pantoprazole 40 Mg Vial) 40 mg IVPUSH ONETIME ONE Stop: 10/03/20 15:18 Last Admin: 10/03/20 15:35 Dose: 40 mg Documented by: Scopolamine (Scopolamine 1.5 Mg Transdermal Patch) 1.5 mg TOP ONETIME ONE Stop: 10/06/20 17:53 Sodium Chloride (Sodium Chloride 0.9% 10 Ml Syringe) 10 ml FLUSH ONETIME PRN PRN Reason: Keep Vein Open Last Admin: 10/03/20 14:13 Dose: 10 ml Documented by: - Exam General: Alert HEENT: EOMI, Mucous Membr. Moist/[place] Neck: Supple Lungs: Clear to Auscultation, Normal Respiratory Effort Cardiovascular: Regular Rate, Regular Rhythm GI/Abdominal Exam: Soft, Non-Tender Extremities: Normal Inspection Skin: Warm, Dry Neurological: No New Focal Deficit - Patient Data Lab Results Last 24 hrs: Laboratory Results - last 24 hr 10/06/20 10/06/20 Range/Units 06:39 06:39 WBC 6.27 (4.23-9.07) K/mm3 RBC 3.85 L (4.63-6.08) M/mm3 Hgb 11.8 L (13.7-17.5) gm/dl Hct 34.9 L (40.1-51.0) % MCV 90.6 (79.0-92.2) fl MCH 30.6 (25.7-32.2) pg MCHC 33.8 (32.2-35.5) g/dl RDW Std Deviation 43.1 (35.1-43.9) fL Plt Count 193 (163-337) K/mm3 MPV 10.0 (9.4-12.3) fl Neut % (Auto) 79.7 H (34.0-67.9) % Lymph % (Auto) 8.0 L (21.8-53.1) % [place] % (Auto) 9.4 (5.3-12.2) % Eos % (Auto) 2.7 (0.8-7.0) Baso % (Auto) 0.2 (0.1-1.2) % Neut # (Auto) 5.00 (1.78-5.38) K/mm3 Lymph # (Auto) 0.50 L (1.32-3.57) K/mm3 [place] # (Auto) 0.59 (0.30-0.82) K/mm3 Eos # (Auto) 0.17 (0.04-0.54) K/mm3 Baso # (Auto) 0.01 (0.01-0.08) K/mm3 Manual Slide Review Normal smear Sodium 136 (136-145) mEq/L Potassium 3.6 (3.5-5.1) mEq/L Chloride 101 (98-107) mEq/L Carbon Dioxide 27 (21-32) mEq/L Anion Gap 11.6 (5-15) BUN 14 (7-18) mg/dL Creatinine 1.0 (0.7-1.3) mg/dL Est Cr Clr Drug Dosing 37.63 mL/min Estimated GFR (MDRD) > 60 (>60) mL/min BUN/Creatinine Ratio 14.0 (14-18) Glucose 147 H (70-99) mg/dL Calcium 7.7 L (8.5-10.1) mg/dL Magnesium 1.8 (1.8-2.4) mg/dL Total Bilirubin 0.4 (0.2-1.0) mg/dL AST 14 L (15-37) U/L ALT 20 (16-63) U/L Alkaline Phosphatase 82 (46-116) U/L C-Reactive Protein 18.7 H* (<1.0) mg/dL Total Protein 5.8 L (6.4-8.2) g/dl Albumin 2.1 L (3.4-5.0) g/dl Globulin 3.7 gm/dL Albumin/Globulin Ratio 0.6 L (1-2) Result Diagrams: 10/06/20 06:39 10/06/20 06:39 Sepsis Event Note - Evaluation Sepsis Screening Result: No Definite Risk - Focused Exam Vital Signs: Vital Signs Temp Pulse Resp BP Pulse Ox 10/06/20 15:01 97.9 F 86 14 126/74 100 10/06/20 11:27 99.0 F 84 14 116/66 96 10/06/20 07:31 98.2 F 84 14 105/60 92 L - Problem List Review Problem List Initiated/Reviewed/Updated: Yes - Plan Plan:: 10/04/20 afebrile currently last night spiked to 101 antibiotics started cleocin and rocephin i.v. at 75 cc //hour. npo p.e. lungs clear cor rrr. abd flat/no crepatus. b.s active. minimal tenderness/soft. neuro more responsive and states hungry. lab reviewed lytes stable cbc unremarckable. blood c/s no growth so far. assess: pneumoperitoneum s/p peg tube pod 6/ cause unclear ? perferation of viscus no free fluid or phlegmon seen . fever started on empiric antibiotics. day 2 . hypotension resolved/ does not appear septic . Alzheimer disease hx of brain bleed in past. plan ;?better to cont current support and antibiotics /// appears stable . ? etiology//// consider risks of peritoneal spill of contrast to locate possible perforation high . vs empiric care (gastrographin or c t with oral contrast) . restart tube feeding tomorrow if continues clinically stable . discussed with Dr Caballero and in agreement. [facility] This is 85M with advanced dementia and malnutrition requiring gastrostomy tube for enteral feeds presenting with pneumoperitoneum 5 days after PEG placement 1. Pneumoperitoneum 2. Hx of alzheimer's dementia 3. hx of dysphagia; s/p G tube placement 4. Hx of Asthma/COPD 5. hx of constipation 6. Hx of HTN 7. Hx of HLD Plan -continue antibiotics for now -Surgery consulted -welcome wagon hostess consult for nutrition recs on TF -continue PPI poor prognosis Code Status-DNR/DNI/comfor care
[2020-10-06] MEDS: cefTRIAXone 1 GM in Sodium Chloride 0.9% 100 ML IV SCH (23:02)
[2020-10-06] MEDS: Latanoprost 0.005% Ophth Soln 2.5 ML Bottle EYEBOTH SCH (23:03)
[2020-10-07] MEDS: Pantoprazole 40 MG Vial IVPUSH SCH (08:35)
[2020-10-07] MEDS: Enoxaparin 40 MG/0.4 ML Syringe SUBCUT SCH ×2 (08:36→21:45)
[2020-10-07] MEDS ORDERED: Loperamide 2 MG Cap PEGTUBE PRN (17:41)
--- NOTE | 2020-10-07 17:41 | PCM.PN ---
- General Info Date of Service: 10/07/20 Admission Dx/Problem (Free Text): Brought in with concern for possible infection at gastrostomy site, found to have massive pneumoperitoneum as incidental finding on imaging. Subjective Update: hx limited due to dementia patient alert this AM but minimally engaging pulled IV yesterday early evening; IV replaced completed antibiotics ROS: unable to be obtained due to dementia - Patient Data Vitals - Most Recent: Last Vital Signs Temp 98.2 F 10/07/20 11:31 Pulse 88 10/07/20 11:31 Resp 16 10/07/20 11:31 BP 132/69 10/07/20 11:31 Pulse Ox 96 10/07/20 11:31 Weight - Most Recent: 104 lb I&O - Last 24 Hours: Intake & Output 10/07/20 10/07/20 10/07/20 06:59 14:59 22:59 Intake Total 735 558 Balance 735 558 Lab Results Last 24 Hours: Laboratory Results - last 24 hr 10/07/20 10/07/20 Range/Units 05:55 05:55 WBC 6.16 (4.23-9.07) K/mm3 RBC 4.05 L (4.63-6.08) M/mm3 Hgb 12.2 L (13.7-17.5) gm/dl Hct 36.8 L (40.1-51.0) % MCV 90.9 (79.0-92.2) fl MCH 30.1 (25.7-32.2) pg MCHC 33.2 (32.2-35.5) g/dl RDW Std Deviation 42.7 (35.1-43.9) fL Plt Count 230 (163-337) K/mm3 MPV 10.0 (9.4-12.3) fl Neut % (Auto) 75.9 H (34.0-67.9) % Lymph % (Auto) 8.0 L (21.8-53.1) % Jenkins % (Auto) 10.7 (5.3-12.2) % Eos % (Auto) 4.9 (0.8-7.0) Baso % (Auto) 0.3 (0.1-1.2) % Neut # (Auto) 4.68 (1.78-5.38) K/mm3 Lymph # (Auto) 0.49 L (1.32-3.57) K/mm3 Jenkins # (Auto) 0.66 (0.30-0.82) K/mm3 Eos # (Auto) 0.30 (0.04-0.54) K/mm3 Baso # (Auto) 0.02 (0.01-0.08) K/mm3 Manual Slide Review Normal smear Sodium 137 (136-145) mEq/L Potassium 3.7 (3.5-5.1) mEq/L Chloride 103 (98-107) mEq/L Carbon Dioxide 26 (21-32) mEq/L Anion Gap 11.7 (5-15) BUN 11 (7-18) mg/dL Creatinine 0.9 (0.7-1.3) mg/dL Est Cr Clr Drug Dosing 41.58 mL/min Estimated GFR (MDRD) > 60 (>60) mL/min BUN/Creatinine Ratio 12.2 L (14-18) Glucose 142 H (70-99) mg/dL Calcium 7.7 L (8.5-10.1) mg/dL Magnesium 1.8 (1.8-2.4) mg/dL Total Bilirubin 0.3 (0.2-1.0) mg/dL AST 21 (15-37) U/L ALT 27 (16-63) U/L Alkaline Phosphatase 83 (46-116) U/L C-Reactive Protein 12.6 H* (<1.0) mg/dL Total Protein 5.8 L (6.4-8.2) g/dl Albumin 2.2 L (3.4-5.0) g/dl Globulin 3.6 gm/dL Albumin/Globulin Ratio 0.6 L (1-2) Med Orders - Current: Current Medications Acetaminophen (Acetaminophen 650 Mg Supp) 650 mg RECTAL Q6H PRN PRN Reason: Fever Last Admin: 10/03/20 19:28 Dose: 650 mg Documented by: Enoxaparin Sodium (Enoxaparin 40 Mg/0.4 Ml Syringe) 40 mg SUBCUT Q12H [facility] Last Admin: 10/07/20 08:36 Dose: 40 mg Documented by: Latanoprost (Latanoprost 0.005% Ophth Soln 2.5 Ml Bottle) 0 ml EYEBOTH BEDTIME SABI Last Admin: 10/06/20 23:03 Dose: 1 drop Documented by: Miscellaneous Information (Remove Patch) 1 ea TRDERM ONETIME ONE Stop: 10/09/20 18:01 Morphine Sulfate (Morphine 2 Mg/Ml Syringe) 2 mg IVPUSH Q4H PRN PRN Reason: Abdominal Pain Last Admin: 10/03/20 19:27 Dose: 2 mg Documented by: Ondansetron HCl (Ondansetron 4 Mg/2 Ml Sdv) 4 mg IVPUSH Q8H PRN PRN Reason: Abdominal Pain Pantoprazole Sodium (Pantoprazole 40 Mg Tab.Cr) 40 mg PO DAILY SABI Discontinued Medications Enoxaparin Sodium (Enoxaparin 40 Mg/0.4 Ml Syringe) 40 mg SUBCUT ONETIME ONE Stop: 10/04/20 16:40 Last Admin: 10/04/20 16:56 Dose: Not Given Documented by: Dextrose/Sodium Chloride (Dextrose 5%-1/2 Ns) 1,000 mls @ 75 mls/hr IV ASDIRECTED [facility] Last Admin: 10/06/20 09:06 Dose: 75 mls/hr Documented by: Ceftriaxone Sodium 2 gm/ (Sodium Chloride) 100 mls @ 200 mls/hr IV ONETIME ONE Stop: 10/03/20 19:36 Last Admin: 10/03/20 19:26 Dose: 200 mls/hr Documented by: Ceftriaxone Sodium 1 gm/ (Sodium Chloride) 100 mls @ 200 mls/hr IV Q24H [facility] Last Admin: 10/06/20 23:02 Dose: 200 mls/hr Documented by: Clindamycin Phosphate 900 mg/ (Premix) 50 mls @ 100 mls/hr IV Q8H [facility] Last Admin: 10/06/20 23:20 Dose: 100 mls/hr Documented by: Dextrose/Sodium Chloride (Dextrose 5%-1/2 Ns) 1,000 mls @ 50 mls/hr IV ASDIRECTED [facility] Last Admin: 10/06/20 23:25 Dose: 50 mls/hr Documented by: Iopamidol (Iopamidol 612 Mg/Ml 100 Ml Bottle) 100 ml IVPUSH ONETIME ONE Stop: 10/03/20 13:59 Last Admin: 10/03/20 14:13 Dose: 100 ml Documented by: Pantoprazole Sodium (Pantoprazole 40 Mg Vial) 40 mg IVPUSH ONETIME ONE Stop: 10/03/20 15:18 Last Admin: 10/03/20 15:35 Dose: 40 mg Documented by: Pantoprazole Sodium (Pantoprazole 40 Mg Vial) 40 mg IVPUSH DAILY [facility] Last Admin: 10/07/20 08:35 Dose: 40 mg Documented by: Scopolamine (Scopolamine 1.5 Mg Transdermal Patch) 1.5 mg TOP ONETIME ONE Stop: 10/06/20 17:53 Last Admin: 10/06/20 19:51 Dose: Not Given Documented by: Sodium Chloride (Sodium Chloride 0.9% 10 Ml Syringe) 10 ml FLUSH ONETIME PRN PRN Reason: Keep Vein Open Last Admin: 10/03/20 14:13 Dose: 10 ml Documented by: - Exam General: No Acute Distress HEENT: EOMI Lungs: Clear to Auscultation, Normal Respiratory Effort Cardiovascular: Regular Rate, Regular Rhythm GI/Abdominal Exam: Soft, Non-Tender, No Distention Back Exam: Normal Inspection Skin: Warm, Dry Neurological: No New Focal Deficit - Patient Data Lab Results Last 24 hrs: Laboratory Results - last 24 hr 10/07/20 10/07/20 Range/Units 05:55 05:55 WBC 6.16 (4.23-9.07) K/mm3 RBC 4.05 L (4.63-6.08) M/mm3 Hgb 12.2 L (13.7-17.5) gm/dl Hct 36.8 L (40.1-51.0) % MCV 90.9 (79.0-92.2) fl MCH 30.1 (25.7-32.2) pg MCHC 33.2 (32.2-35.5) g/dl RDW Std Deviation 42.7 (35.1-43.9) fL Plt Count 230 (163-337) K/mm3 MPV 10.0 (9.4-12.3) fl Neut % (Auto) 75.9 H (34.0-67.9) % Lymph % (Auto) 8.0 L (21.8-53.1) % Jenkins % (Auto) 10.7 (5.3-12.2) % Eos % (Auto) 4.9 (0.8-7.0) Baso % (Auto) 0.3 (0.1-1.2) % Neut # (Auto) 4.68 (1.78-5.38) K/mm3 Lymph # (Auto) 0.49 L (1.32-3.57) K/mm3 Jenkins # (Auto) 0.66 (0.30-0.82) K/mm3 Eos # (Auto) 0.30 (0.04-0.54) K/mm3 Baso # (Auto) 0.02 (0.01-0.08) K/mm3 Manual Slide Review Normal smear Sodium 137 (136-145) mEq/L Potassium 3.7 (3.5-5.1) mEq/L Chloride 103 (98-107) mEq/L Carbon Dioxide 26 (21-32) mEq/L Anion Gap 11.7 (5-15) BUN 11 (7-18) mg/dL Creatinine 0.9 (0.7-1.3) mg/dL Est Cr Clr Drug Dosing 41.58 mL/min Estimated GFR (MDRD) > 60 (>60) mL/min BUN/Creatinine Ratio 12.2 L (14-18) Glucose 142 H (70-99) mg/dL Calcium 7.7 L (8.5-10.1) mg/dL Magnesium 1.8 (1.8-2.4) mg/dL Total Bilirubin 0.3 (0.2-1.0) mg/dL AST 21 (15-37) U/L ALT 27 (16-63) U/L Alkaline Phosphatase 83 (46-116) U/L C-Reactive Protein 12.6 H* (<1.0) mg/dL Total Protein 5.8 L (6.4-8.2) g/dl Albumin 2.2 L (3.4-5.0) g/dl Globulin 3.6 gm/dL Albumin/Globulin Ratio 0.6 L (1-2) Result Diagrams: 10/07/20 05:55 10/07/20 05:55 Sepsis Event Note - Evaluation Sepsis Screening Result: No Definite Risk - Focused Exam Vital Signs: Vital Signs Temp Pulse Resp BP Pulse Ox 10/07/20 11:31 98.2 F 88 16 132/69 96 10/07/20 07:43 98.2 F 85 16 133/75 96 - Problem List Review Problem List Initiated/Reviewed/Updated: Yes - My Orders Last 24 Hours: My Active Orders 10/08/20 09:00 Pantoprazole [ProTONIX] 40 mg PO DAILY - Plan Plan:: 10/04/20 afebrile currently last night spiked to 101 antibiotics started cleocin and rocephin i.v. at 75 cc //hour. npo p.e. lungs clear cor rrr. abd flat/no crepatus. b.s active. minimal tenderness/soft. neuro more responsive and states hungry. lab reviewed lytes stable cbc unremarckable. blood c/s no growth so far. assess: pneumoperitoneum s/p peg tube pod 6/ cause unclear ? perferation of viscus no free fluid or phlegmon seen . fever started on empiric antibiotics. day 2 . hypotension resolved/ does not appear septic . Alzheimer disease hx of brain bleed in past. plan ;?better to cont current support and antibiotics /// appears stable . ? etiology//// consider risks of peritoneal spill of contrast to locate possible perforation high . vs empiric care (gastrographin or c t with oral contrast) . restart tube feeding tomorrow if continues clinically stable . discussed with Dr Caballero and in agreement. boh This is 85M with advanced dementia and malnutrition requiring gastrostomy tube for enteral feeds presenting with pneumoperitoneum 5 days after PEG placement 1. Pneumoperitoneum 2. Hx of alzheimer's dementia 3. hx of dysphagia; s/p G tube placement 4. Hx of Asthma/COPD 5. hx of constipation 6. Hx of HTN 7. Hx of HLD Plan -completed antibiotics -Surgery consulted -preschool director consult for nutrition recs on TF -further adjustments to TF today with Free water flushes -continue PPI -anticipated discharge tomorrow poor prognosis Code Status-DNR/DNI/comfor care
[2020-10-07] MEDS: Latanoprost 0.005% Ophth Soln 2.5 ML Bottle EYEBOTH SCH (21:45)
--- NOTE | 2020-10-08 07:11 | PCM.DCSUM1 ---
Discharge Summary - Hospital Course HPI Initial Comments: History of Present Illness Initial Comments - Free Text/Narative: Dr. Cummings 10/03/20 85 year old male with recent placement of gastric peg with greenish dc noted by nurses at [facility] [place]. seen by sampsonr and incidental finding of massive pneumoperitoneum bringing up question of possible perforated ulcer . feeding tube looks appropriately placed in stomach. conservative supportive care recommended by Dr Caballero and family agrees. so admitted for pain contol and comfort measures and observation of status. discussed with kvng nelson. and Dr Caballero patient awake but non verbal and states abd pain present.no other hx obtained. p.e. shows elderly quiet male with normal appearing feeding peg without redness or discharge. no air in abd wall and soft abd with low bowel sounds. mild wincing on exam ? rebound rest of exam remarkably for features of dementia . assess: 85 year old male with pneumoperitoneum of unknown cause . plan: admit for observation and pain control. supportive care. patient on comfort measures and hold oral meds . ppi and pain control if this deteriorates. i.v. started and patient is no code // dnr . boh HOSPITAL COURSE This is 85M with advanced dementia and malnutrition requiring gastrostomy tube for enteral feeds presenting with pneumoperitoneum 5 days after PEG placement 1. Pneumoperitoneum 2. Hx of alzheimer's dementia 3. hx of dysphagia; s/p G tube placement 4. Hx of Asthma/COPD 5. hx of constipation 6. Hx of HTN 7. Hx of HLD Plan -completed antibiotics -Surgery consulted -retention manager consult for nutrition recs on TF -further adjustments to TF today with Free water flushes -continue PPI -anticipated discharge tomorrow poor prognosis Code Status-DNR/DNI/[facility] care Surgery Consult Recs Significant pneumoperitoneum of unclear etiology in patient with recent PEG placement one week ago with tube confirmed in proper place on imaging. He does not have an acute abdomen and has been stable now in hospital for ~72 hours, currently on broad spectrum antibiotics and IV PPI with bowel rest. Recent endoscopy with biopsy shows peptic duodenitis, suggesting possibility of perforated duodenal ulcer. I spoke with his step-daughter, Amie Lora, who clarified that if patient were to develop peritonitis we would pursue comfort measures rather than surgery. WBC 6 yesterday. P: -Recommend trial of trophic enteral feeds at 10-20 cc/hr starting this morning- if he tolerates this, would recommend stopping antibiotics and IV fluids and observing for 24 hours. Diagnosis: Stroke: No - Discharge Data Discharge Date: 10/08/20 Discharge Disposition: DC/Tfer to SNF 03 Condition: Poor - Referral to Home Health Primary Care Physician: Jori Ivy MD - Patient Instructions Activity: As Tolerated - Discharge Plan *PRESCRIPTION DRUG MONITORING PROGRAM REVIEWED*: Not Applicable *COPY OF PRESCRIPTION DRUG MONITORING REPORT IN PATIENT FLORY: Not Applicable Home Medications: Home Meds Montelukast [Singulair] 10 mg PO DAILY 02/20/19 [History] Acetaminophen [Tylenol] 650 mg PO Q4H PRN 04/11/20 [History] Cholecalciferol (Vitamin D3) [Vitamin D3] 25 mcg PO DAILY 04/11/20 [History] Latanoprost/Pf [Latanoprost 0.005% Eye Drop] 1 drop EYEBOTH BEDTIME 04/11/20 [History] Ondansetron [Zofran ODT] 4 mg PO Q6H PRN 04/11/20 [History] Sennosides [Senna] 8.6 mg PO DAILY PRN 06/28/20 [History] Albuterol/Ipratropium [DuoNeb 3.0-0.5 MG/3 ML] 3 ml NEB BID 09/25/20 [History] Oxygen Therapy Mode: Room Air Forms: ED Department Discharge Referrals: Jori Ivy MD [Primary Care Provider] - (Follow up with [facility]) - Discharge Summary/Plan Comment DC Time >30 min.: Yes (35 minutes) Total # of Minutes for Discharge Time: 35 minutes - Patient Data Vitals - Most Recent: Last Vital Signs Temp 99.0 F 10/08/20 04:12 Pulse 92 10/08/20 04:12 Resp 20 10/08/20 04:12 BP 128/67 10/08/20 04:12 Pulse Ox 96 10/08/20 04:12 Weight - Most Recent: 105 lb 11.2 oz I&O - Last 24 hours: Intake & Output 10/07/20 10/08/20 10/08/20 22:59 06:59 14:59 Intake Total 618 441 Balance 618 441 Lab Results - Last 24 hrs: Laboratory Results - last 24 hr 10/08/20 10/08/20 Range/Units 06:24 06:24 WBC 7.62 (4.23-9.07) K/mm3 RBC 4.29 L (4.63-6.08) M/mm3 Hgb 12.9 L (13.7-17.5) gm/dl Hct 39.0 L (40.1-51.0) % MCV 90.9 (79.0-92.2) fl MCH 30.1 (25.7-32.2) pg MCHC 33.1 (32.2-35.5) g/dl RDW Std Deviation 42.7 (35.1-43.9) fL Plt Count 263 (163-337) K/mm3 MPV 9.9 (9.4-12.3) fl Neut % (Auto) 78.4 H (34.0-67.9) % Lymph % (Auto) 7.7 L (21.8-53.1) % Andrews % (Auto) 8.0 (5.3-12.2) % Eos % (Auto) 5.1 (0.8-7.0) Baso % (Auto) 0.4 (0.1-1.2) % Neut # (Auto) 5.97 H (1.78-5.38) K/mm3 Lymph # (Auto) 0.59 L (1.32-3.57) K/mm3 Andrews # (Auto) 0.61 (0.30-0.82) K/mm3 Eos # (Auto) 0.39 (0.04-0.54) K/mm3 Baso # (Auto) 0.03 (0.01-0.08) K/mm3 Manual Slide Review Normal smear Sodium 138 (136-145) mEq/L Potassium 4.0 (3.5-5.1) mEq/L Chloride 103 (98-107) mEq/L Carbon Dioxide 27 (21-32) mEq/L Anion Gap 12.0 (5-15) BUN 12 (7-18) mg/dL Creatinine 0.9 (0.7-1.3) mg/dL Est Cr Clr Drug Dosing 42.17 mL/min Estimated GFR (MDRD) > 60 (>60) mL/min BUN/Creatinine Ratio 13.3 L (14-18) Glucose 139 H (70-99) mg/dL Calcium 7.9 L (8.5-10.1) mg/dL Magnesium 1.9 (1.8-2.4) mg/dL Total Bilirubin 0.3 (0.2-1.0) mg/dL AST 41 H (15-37) U/L ALT 52 (16-63) U/L Alkaline Phosphatase 96 (46-116) U/L C-Reactive Protein 8.8 H* (<1.0) mg/dL Total Protein 6.2 L (6.4-8.2) g/dl Albumin 2.4 L (3.4-5.0) g/dl Globulin 3.8 gm/dL Albumin/Globulin Ratio 0.6 L (1-2) Med Orders - Current: Current Medications Acetaminophen (Acetaminophen 650 Mg Supp) 650 mg RECTAL Q6H PRN PRN Reason: Fever Last Admin: 10/03/20 19:28 Dose: 650 mg Documented by: Enoxaparin Sodium (Enoxaparin 40 Mg/0.4 Ml Syringe) 40 mg SUBCUT Q12H [facility] Last Admin: 10/07/20 21:45 Dose: 40 mg Documented by: Latanoprost (Latanoprost 0.005% Ophth Soln 2.5 Ml Bottle) 0 ml EYEBOTH BEDTIME SABI Last Admin: 10/07/20 21:45 Dose: 1 drop Documented by: Loperamide HCl (Loperamide 2 Mg Cap) 2 mg PEGTUBE Q4H PRN PRN Reason: Diarrhea Last Admin: 10/07/20 17:59 Dose: 2 mg Documented by: Miscellaneous Information (Remove Patch) 1 ea TRDERM ONETIME ONE Stop: 10/09/20 18:01 Morphine Sulfate (Morphine 2 Mg/Ml Syringe) 2 mg IVPUSH Q4H PRN PRN Reason: Abdominal Pain Last Admin: 10/03/20 19:27 Dose: 2 mg Documented by: Ondansetron HCl (Ondansetron 4 Mg/2 Ml Sdv) 4 mg IVPUSH Q8H PRN PRN Reason: Abdominal Pain Pantoprazole Sodium (Pantoprazole 40 Mg Tab.Cr) 40 mg PO DAILY SABI Discontinued Medications Enoxaparin Sodium (Enoxaparin 40 Mg/0.4 Ml Syringe) 40 mg SUBCUT ONETIME ONE Stop: 10/04/20 16:40 Last Admin: 10/04/20 16:56 Dose: Not Given Documented by: Dextrose/Sodium Chloride (Dextrose 5%-1/2 Ns) 1,000 mls @ 75 mls/hr IV ASDIRECTED [facility] Last Admin: 10/06/20 09:06 Dose: 75 mls/hr Documented by: Ceftriaxone Sodium 2 gm/ (Sodium Chloride) 100 mls @ 200 mls/hr IV ONETIME ONE Stop: 10/03/20 19:36 Last Admin: 10/03/20 19:26 Dose: 200 mls/hr Documented by: Ceftriaxone Sodium 1 gm/ (Sodium Chloride) 100 mls @ 200 mls/hr IV Q24H [facility] Last Admin: 10/06/20 23:02 Dose: 200 mls/hr Documented by: Clindamycin Phosphate 900 mg/ (Premix) 50 mls @ 100 mls/hr IV Q8H [facility] Last Admin: 10/06/20 23:20 Dose: 100 mls/hr Documented by: Dextrose/Sodium Chloride (Dextrose 5%-1/2 Ns) 1,000 mls @ 50 mls/hr IV ASDIRECTED [facility] Last Admin: 10/06/20 23:25 Dose: 50 mls/hr Documented by: Iopamidol (Iopamidol 612 Mg/Ml 100 Ml Bottle) 100 ml IVPUSH ONETIME ONE Stop: 10/03/20 13:59 Last Admin: 10/03/20 14:13 Dose: 100 ml Documented by: Pantoprazole Sodium (Pantoprazole 40 Mg Vial) 40 mg IVPUSH ONETIME ONE Stop: 10/03/20 15:18 Last Admin: 10/03/20 15:35 Dose: 40 mg Documented by: Pantoprazole Sodium (Pantoprazole 40 Mg Vial) 40 mg IVPUSH DAILY [facility] Last Admin: 10/07/20 08:35 Dose: 40 mg Documented by: Scopolamine (Scopolamine 1.5 Mg Transdermal Patch) 1.5 mg TOP ONETIME ONE Stop: 10/06/20 17:53 Last Admin: 10/06/20 19:51 Dose: Not Given Documented by: Sodium Chloride (Sodium Chloride 0.9% 10 Ml Syringe) 10 ml FLUSH ONETIME PRN PRN Reason: Keep Vein Open Last Admin: 10/03/20 14:13 Dose: 10 ml Documented by: - Exam Physical Findings Comments:: - Exam General: No Acute Distress HEENT: EOMI Lungs: Clear to Auscultation, Normal Respiratory Effort Cardiovascular: Regular Rate, Regular Rhythm GI/Abdominal Exam: Soft, Non-Tender, No Distention Back Exam: Normal Inspection Skin: Warm, Dry Neurological: No New Focal Deficit *Q Meaningful Use (DIS) - VTE *Q VTE Anticoagulation Contraindications: Medical/Procedure Contrai
[2020-10-08] MEDS: Enoxaparin 40 MG/0.4 ML Syringe SUBCUT SCH (08:48)
[2020-10-08] MEDS ORDERED: Pantoprazole 40 MG Tab.CR PO SCH (09:00)
== END 2020-10-08 13:24 | DRG 951 ==
LOC: JD.ED 12:13 → JD.MS 16:57
PROVIDERS: ADMIT Pediatrics; ATTEND Pediatrics
DX: Z51.5 Encounter for palliative care (principal); Z93.1 Gastrostomy status; K26.5 Chronic or unspecified duodenal ulcer with perforation; E46 Unspecified protein-calorie malnutrition; Z68.1 Body mass index [BMI] 19.9 or less, adult; K66.8 Other specified disorders of peritoneum; K94.29 Other complications of gastrostomy; Z20.822 Contact with and (suspected) exposure to COVID-19; Z66 Do not resuscitate; G30.9 Alzheimer's disease, unspecified; F02.80 Dementia in other diseases classified elsewhere, unspecified severity, without behavioral disturbance, psychotic disturbance, mood disturbance, and anxiety; J44.9 Chronic obstructive pulmonary disease, unspecified; I10 Essential (primary) hypertension; E78.5 Hyperlipidemia, unspecified; R13.10 Dysphagia, unspecified; M19.90 Unspecified osteoarthritis, unspecified site; E86.0 Dehydration; E78.00 Pure hypercholesterolemia, unspecified; K59.09 Other constipation; S09.90XS Unspecified injury of head, sequela; Z79.899 Other long term (current) drug therapy; Z87.01 Personal history of pneumonia (recurrent); Z87.442 Personal history of urinary calculi
CPT/HCPCS: 36415; 71046; 74177; 80053; 85025; 96374; 99285; C9113; Q9967; U0002; 83605; 83735; 84145; 86140; 87040; 99232; 99239; 99283; A9270-GY; J0696; J1650; J2270; J3490; J7042